=== PATIENT | female | born 1965 | race Caucasian/White ===

== ENCOUNTER → 2016-07-16 | Outpatient (CLI) | payer OTHER ==
[~2016-07-16] MED LIST: ACETAMINOPHEN 325 MG TAB PO ONE; diphenhydrAMINE 25 MG CAP PO ONE
[2016-07-16 11:03] LABS: % IMMATURE GRANULOCYTES 0.8 % (0.0-1.1); ABSOLUTE IMMATURE GRANULOCYTES 0.01 10^3/uL (0-0.10); HEMATOCRIT 35.8 % (38.0-47.0); HEMOGLOBIN 11.9 g/dL (12.6-16.3); LIPEMIA HEMOLYSIS FLAG 80 (0-99); MEAN CELL HEMOGLOBIN 31.4 pg (27.9-34.1); MEAN CELL HEMOGLOBIN CONC. 33.2 g/dL (32.4-36.7); MEAN CELL VOLUME 94.5 fL (81.5-99.8); PLATELET CLUMPS FLAG 0 (0-99); PLATELET COUNT 9 10^3/uL (150-400); RED BLOOD CELL COUNT 3.79 10^6/uL (4.18-5.33); RED CELL DISTRIBUTION WIDTH 11.7 % (11.5-15.2)
[2016-07-16 11:41] LABS: ALANINE AMINOTRANSFERASE 140 IU/L (9-52); ALBUMIN 4.1 g/dL (3.5-5.0); ALKALINE PHOSPHATASE 108 IU/L (38-126); ANION GAP 12 mEq/L (8-16); ASPARTATE AMINOTRANSFERASE 59 IU/L (14-46); BILIRUBIN,TOTAL 0.7 mg/dL (0.1-1.4); CALCIUM 8.9 mg/dL (8.5-10.4); CARBON DIOXIDE 26 mEq/l (22-31); CHLORIDE 105 mEq/L (97-110); CREATININE 0.7 mg/dL (0.6-1.0); GLOMERULAR FILTRATION RATE > 60; GLUCOSE 90 mg/dL (70-100); POTASSIUM 3.9 mEq/L (3.5-5.2); SODIUM 143 mEq/L (134-144); TOTAL PROTEIN 6.9 g/dL (6.3-8.2)
== END ==
LOC: RMCCLAB 05:32 → EDSTATUS 14:03 → FOBOP 14:04
PROVIDERS: ATTEND Internal Medicine Hematology & Oncology
PROC: 30233R1 Transfusion of Nonautologous Platelets into Peripheral Vein, Percutaneous Approach (ICD-10-PCS; principal; 2016-07-16)
DX: C50.412 Malignant neoplasm of upper-outer quadrant of left female breast (principal)
CPT/HCPCS: 36430; P9035

== ENCOUNTER → 2016-09-09 | Outpatient (CLI) | payer OTHER | LOC: FIMAGING 15:49 | PROVIDERS: ATTEND Nurse Practitioner | DX: M79.602 Pain in left arm (principal); M79.89 Other specified soft tissue disorders; Z90.13 Acquired absence of bilateral breasts and nipples ==

== ENCOUNTER → 2016-09-14 | Outpatient (CLI) | payer OTHER | LOC: FIMAGING 12:35 | PROVIDERS: ATTEND Internal Medicine Hematology & Oncology | DX: S46.012A Strain of muscle(s) and tendon(s) of the rotator cuff of left shoulder, initial encounter (principal); Z90.12 Acquired absence of left breast and nipple ==

== ENCOUNTER → 2016-09-18 | Outpatient (CLI) | payer OTHER ==
[~2016-09-18] MED LIST changes: +HYDROmorphONE/DILAUDID 2 MG/ML INJ IVP ONE; +LORazepam 2 MG/ML INJ IVP ONE
[2016-09-18 14:26] LABS: % IMMATURE GRANULOCYTES 0.5 % (0.0-1.1); ABSOLUTE IMMATURE GRANULOCYTES 0.02 10^3/uL (0-0.10); HEMATOCRIT 20.4 % (38.0-47.0); HEMOGLOBIN 6.8 g/dL (12.6-16.3); LIPEMIA HEMOLYSIS FLAG 80 (0-99); MEAN CELL HEMOGLOBIN 34.3 pg (27.9-34.1); MEAN CELL HEMOGLOBIN CONC. 33.3 g/dL (32.4-36.7); PLATELET CLUMPS FLAG 10 (0-99); RED BLOOD CELL COUNT 1.98 10^6/uL (4.18-5.33); RED CELL DISTRIBUTION WIDTH 17.3 % (11.5-15.2)
[2016-09-18 14:37] LABS: ALANINE AMINOTRANSFERASE 213 IU/L (9-52); ALBUMIN 3.8 g/dL (3.5-5.0); ALKALINE PHOSPHATASE 161 IU/L (38-126); ANION GAP 11 mEq/L (8-16); ASPARTATE AMINOTRANSFERASE 92 IU/L (14-46); BILIRUBIN,TOTAL 0.7 mg/dL (0.1-1.4); CARBON DIOXIDE 30 mEq/l (22-31); CHLORIDE 98 mEq/L (97-110); CREATININE 0.5 mg/dL (0.6-1.0); GLOMERULAR FILTRATION RATE > 60; POTASSIUM 4.2 mEq/L (3.5-5.2); SODIUM 139 mEq/L (134-144); TOTAL PROTEIN 6.4 g/dL (6.3-8.2)
[2016-09-18 14:39] LABS: PLATELET COUNT 6 10^3/uL (150-400)
[2016-09-18 14:42] LABS: COLOR YELLOW
[2016-09-18 14:43] LABS: LEUKOCYTE ESTERASE,URINE NEGATIVE (NEGATIVE); NITRITE,URINE NEGATIVE (NEGATIVE)
[2016-09-18 15:14] LABS: GLUCOSE 105 mg/dL (70-100)
== END ==
LOC: RMCCLAB 13:22 → EDSTATUS 17:11 → F1NOP 17:12
PROVIDERS: ATTEND Internal Medicine Hematology & Oncology
DX: C50.919 Malignant neoplasm of unspecified site of unspecified female breast (principal)
CPT/HCPCS: 36430; P9016; P9035; 86300-90; J1170; J2060

== ENCOUNTER 2016-09-20 15:25 | Outpatient (CLI) | payer OTHER ==
[2016-09-20 14:53] LABS: % IMMATURE GRANULOCYTES 0.3 % (0.0-1.1); ABSOLUTE IMMATURE GRANULOCYTES 0.01 10^3/uL (0-0.10); ABSOLUTE NRBC COUNT 0.04 10^3/uL (0-0.01); HEMATOCRIT 23.5 % (38.0-47.0); MEAN CELL HEMOGLOBIN 32.9 pg (27.9-34.1); MEAN CELL VOLUME 96.7 fL (81.5-99.8); RED BLOOD CELL COUNT 2.43 10^6/uL (4.18-5.33); RED CELL DISTRIBUTION WIDTH 18.2 % (11.5-15.2)
[2016-09-20 15:02] LABS: NRBC-AUTO% 1.3 % (0.0-0.2)
[2016-09-20] MEDS ORDERED: diphenhydrAMINE 25 MG CAP PO ONE (16:00)
[2016-09-20] MEDS ORDERED: ACETAMINOPHEN 325 MG TAB PO ONE (16:00)
== END 2016-09-20 20:56 | disposition home or self-care (01) ==
LOC: FOBOP 15:25 → EDSTATUS 15:25 → FOBOP 20:56
PROVIDERS: ATTEND Internal Medicine Hematology & Oncology
PROC: 30233N1 Transfusion of Nonautologous Red Blood Cells into Peripheral Vein, Percutaneous Approach (ICD-10-PCS; principal; 2016-09-20)
DX: C50.919 Malignant neoplasm of unspecified site of unspecified female breast (principal); Z88.5 Allergy status to narcotic agent
CPT/HCPCS: 36430; P9016

== ENCOUNTER 2016-09-23 14:55 | Inpatient (IN) | payer OTHER ==
[2016-09-23] MEDS ORDERED: MAGNESIUM HYDROXIDE 30 ML UDCUP PO PRN ×2 (17:09→17:15)
[2016-09-23] MEDS ORDERED: oxyCODONE IR 5 MG TAB PO PRN (17:13)
[2016-09-23] MEDS ORDERED: ACETAMINOPHEN 325 MG TAB PO PRN (17:13)
[2016-09-23] MEDS ORDERED: LACTULOSE 20 GM/30 ML UDCUP PO PRN (17:15)
[2016-09-23] MEDS ORDERED: POLYETHYLENE GLYCOL 3350 17 GM PKT PO PRN (17:15)
[2016-09-23] MEDS ORDERED: BISACODYL 10 MG SUPP PR PRN (17:15)
[2016-09-23] MEDS ORDERED: morphINE SR 15 MG TAB PO SCH (17:30)
[2016-09-23] MEDS: VANCOMYCIN 1.25 GM in D5W 250 ML IV SCH (18:08)
--- NOTE | 2016-09-23 18:11 | GHP ---
[f rep st] HISTORY AND PHYSICAL DATE OF ADMISSION: 09/23/2016 CHIEF COMPLAINT: Left-sided shoulder and flank swelling and fever. HISTORY OF PRESENT ILLNESS: This is a 50-year-old female with a history of recurrent triple negativ e breast cancer, on adjuvant chemotherapy with Taxol, who was directly admitted to [address] [place] [address] from [facility] after she was found to be neutropenic and reported fevers over the past few weeks. Approximately 3-1/2 weeks ago, she sustained a tear to her teres major muscle on the left. She is u nsure how this injury occurred but thinks that she had been pulled by one of her animals. Since the n, she has had worsening pain and swelling over her left shoulder, left breast and flank. She has h ad increasing pain to the point where she has been basically bedbound for the past 2 weeks. She has been having fevers of up to 100.4 on and off for the past few weeks as well. She denies any recent antibiotic use. She has had some shortness of breath that she attributes to the pain, as we ll as some nausea and constipation, possibly from her pain medications. She has also been having problems with anemia and received a unit of packed red blood cells and plat elets last Friday, as well as another unit on this past Friday. PAST MEDICAL HISTORY: Recurrent triple negative breast cancer. PAST SURGICAL HISTORY: 1. Hysterectomy. 2. Right lumpectomy at which time she was diagnosed with breast cancer at age 27. 3. Lymph node resection in the s on the right. 4. Left breast lumpectomy, which found triple negative breast cancer with subsequent sentinel node biopsy and lymph node dissection. 5. Bilateral mastectomy with reconstruction done by Dr. Denise in November of 2015. MEDICATIONS: Home medications were reviewed. Refer to [facility] for details. ALLERGIES: Celexa, codeine, adhesive tape, and ChloraPrep. SOCIAL HISTORY: She lives in [place] with her . She denies any alcohol, tobacco, or illicit d rug use. FAMILY HISTORY: Reviewed and noncontributory. REVIEW OF SYSTEMS: Comprehensive 10-point review of systems was done and is negative, except for as mentioned in the HPI. PHYSICAL EXAMINATION: GENERAL: No acute distress. HEAD: Normocephalic, atraumatic. EYES: PERRL A. Sclerae anicteric. MOUTH: Moist mucous membranes. NECK: Supple. No lymphadenopathy. CARDIO VASCULAR: S1-S2. No murmurs, rubs, clicks, gallops, or JVD. No lower extremity edema. PULMONARY: Lungs are clear. No wheezes, rales, or rhonchi. ABDOMEN: Soft, nontender, nondistended. No gua rding or rebound tenderness. Normoactive bowel sounds. CHEST: There is fullness over the left manjit ast that is not warm to touch. There is no erythema. There is also fullness over the left trapeziu s and left flank with no ecchymosis or erythema. The superior aspect of her left breast is very ten mellissa to palpation. EXTREMITIES: No clubbing or cyanosis. NEURO: Cranial nerves 2-12 grossly intac t. No focal motor or sensory deficits. SKIN: Clear. See above. VITAL SIGNS: Have not yet been recorded during the time of my exam. DIAGNOSTICS: Done at [facility] earlier today. WBC is 1.47, hemoglobin 9.3, hem atocrit 28.1, platelets 83. Sodium 138, potassium 4.4, chloride 101, CO2 26, BUN 12, creatinine 0.6 , glucose 103. AST 57, ALT 114. Alkaline phosphatase 163. UA done on 09/18/2016 was unremarkable. Upper extremity MRI done 09/14/2016 revealed an acute partial tear of the teres major with intramusc ular and adjacent hemorrhage. There is fibrosis and calcification within the belly of the subscapul angelito. Refer to report for full details. ASSESSMENT AND PLAN: This is a 50-year-old female with a history of recurrent breast cancer on adju vant chemotherapy presenting with: 1. Neutropenic fever, concerning for possible implant infection versus hematoma and bleeding from h er recent teres major tear. Plan: I discussed the case with Dr. Russo, who is her treating oncolog ist, who told me that she had a CT scan done recently at [facility] that was conc erning for possible new metastatic disease. 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 Dr. Russo has discussed the case with Dr. Leonardo, as well as with Dr. Denise. For now, she will be started on empiric antibiotics with vancomycin and cefepime. Bl ood cultures have been ordered. 2. Anemia and thrombocytopenia. Plan: The patient will be monitored for bleeding and will transfu se per hospital protocol. We will also send coags, and if coag studies are abnormal, will consider further workup for DIC. 3. Transaminitis, which appears to be chronic. Plan: This will continue to trend. 4. The patient is at high risk for VTE; however, I am reluctant to start chemical DVT prophylaxis g iven the possibility of recent hemorrhage. For now, SCDs will be ordered but consideration for star ting low molecular weight heparin should be entertained. /[id number]/MODL
[2016-09-23 18:30] LABS: APTT 32.1 SEC (23.0-38.0); INR 1.11 (0.83-1.16); PROTIME(PATIENT) 14.2 SEC (12.0-15.0)
[2016-09-23] MEDS ORDERED: diphenhydrAMINE 25 MG CAP PO ONE (19:16)
[2016-09-23] MEDS: diphenhydrAMINE 25 MG CAP PO PRN (19:25)
[2016-09-23 20:08] LABS: COLOR PALE YELLOW; LEUKOCYTE ESTERASE,URINE NEGATIVE (NEGATIVE); NITRITE,URINE NEGATIVE (NEGATIVE)
[2016-09-23] MEDS ORDERED: HYDROmorphONE/DILAUDID 4 MG TAB PO PRN ×2 (20:25→21:22)
[2016-09-23 20:34] LABS: WBC,URINE NONE SEEN /hpf (0-3)
[2016-09-23] MEDS: CEFEPIME HCL 2 GM in D5W 100 ML IV SCH (21:43)
[2016-09-23] MEDS: morphINE SR 15 MG TAB PO SCH (21:43)
[2016-09-23] MEDS: LORazepam 0.5 MG TAB PO PRN (21:43)
[2016-09-23] MEDS: SENNOSIDES/DOCUSATE SODIUM TAB PO SCH (21:43)
[2016-09-23] MEDS: HYDROCODONE/APAP 5/325 TAB PO PRN (23:25)
[2016-09-24] MEDS: LORazepam 0.5 MG TAB PO PRN ×2 (01:32→21:51)
[2016-09-24] MEDS: HYDROCODONE/APAP 5/325 TAB PO PRN ×7 (02:46→23:48)
[2016-09-24] MEDS: CEFEPIME HCL 2 GM in D5W 100 ML IV SCH ×3 (05:23→21:41)
[2016-09-24] MEDS: morphINE SR 15 MG TAB PO SCH ×3 (05:23→21:41)
[2016-09-24] MEDS: diphenhydrAMINE 25 MG CAP PO PRN (05:27)
[2016-09-24 05:43] LABS: ADD DIFF? YES; ADD MORPH? NO; ADD SCAN? NO; ATYPICAL LYMPHOCYTE FLAG 0 (0-99); FRAGMENT RBC FLAG 20 (0-99); HEMATOCRIT 26.2 % (38.0-47.0); HEMOGLOBIN 8.8 g/dL (12.6-16.3); LEFT SHIFT FLG 10 (0-99); LIPEMIA HEMOLYSIS FLAG 80 (0-99); MEAN CELL HEMOGLOBIN 32.1 pg (27.9-34.1); MEAN CELL HEMOGLOBIN CONCENTR. 33.6 g/dL (32.4-36.7); MEAN CELL VOLUME 95.6 fL (81.5-99.8); MEAN PLATELET VOLUME 10.9 fL (8.7-11.7); PLATELET CLUMPS FLAG 20 (0-99); PLATELET COUNT 100 10^3/uL (150-400); RED BLOOD CELL COUNT 2.74 10^6/uL (4.18-5.33); RED CELL DISTRIBUTION WIDTH 19.7 % (11.5-15.2)
[2016-09-24] MEDS: VANCOMYCIN 1.25 GM in D5W 250 ML IV SCH ×2 (06:03→18:16)
[2016-09-24 06:18] LABS: ALANINE AMINOTRANSFERASE 99 IU/L (9-52); ALBUMIN 3.5 g/dL (3.5-5.0); ALKALINE PHOSPHATASE 162 IU/L (38-126); ANION GAP 11 mEq/L (8-16); ASPARTATE AMINOTRANSFERASE 50 IU/L (14-46); BILIRUBIN,TOTAL 0.7 mg/dL (0.1-1.4); CALCIUM 8.7 mg/dL (8.5-10.4); CARBON DIOXIDE 26 mEq/l (22-31); CHLORIDE 103 mEq/L (97-110); CREATININE 0.5 mg/dL (0.6-1.0); GLOMERULAR FILTRATION RATE > 60; GLUCOSE 101 mg/dL (70-100); PLATELET ESTIMATE DECREASED (ADEQ); POLYCHROMASIA 2+; POTASSIUM 4.2 mEq/L (3.5-5.2); SODIUM 140 mEq/L (134-144); TOTAL PROTEIN 6.2 g/dL (6.3-8.2)
[2016-09-24 06:19] LABS: MACROCYTES 1+
[2016-09-24 06:21] LABS: HYPOCHROMIA 1+
[2016-09-24] MEDS: ESCITALOPRAM OXALATE 10 MG TAB PO SCH (08:57)
[2016-09-24] MEDS: SENNOSIDES/DOCUSATE SODIUM TAB PO SCH ×2 (09:00→19:52)
--- NOTE | 2016-09-24 11:51 | SOAPPROG ---
SOAP Progress Note Assessment/Plan: Assessment: 1.) Fluid accumulation L anterior chest wall with neutropenic fever- possible infected seroma or hematoma now treated with empiric Vancomycin 2.) Left posterior shoulder Anteres Majory muscle tear -probably related to physical strain with outdoor chores, recently 3.) Left breast Carcinoma, initial diagnosis 2014, Triple neg. characteristics , S/P Bilateral mastectomy 08/15 with bilateral implants. S/P Adjuvant Tx for Stage IA, [id number] disease with TC x 4 ( 05/14-07/15 - neoadjuvant Tx). Recurrence, now being treated with weekly Taxol, now causing rather severe pancytopenia, with platelet count down to 6,000. S/P recent blood product support, last week. Marked Neutropenia in the face of infection will resolve with G-CSF which will be ordered to start today. Plan: 1.) Empiric Vancomycin 2.) Blood product support if needed 3.) G-CSF to hasten WBC recovery 4.) Consult Plastic Surgery to consider if percutaneous CT guided fluid cx needs to be obtained. May need to re-image with CT as to fluid resolution. 5.) Delay in further weekly paclitaxel in the face of myelosuppression and possible chest wall infection. 6.) Will follow labs/VS/sx. D/W patient and her at the bedside. 09/24/16 11:51 Subjective: Left anterior chest wall feels somewhat better this AM, still with considerable feeling of fullness, which has shifted lateral and caudal. Mild fever/chills overnight Objective: in NAD, at bedside, VSS, afebrile HEENT-partial alopecia, no oral lesions, anicteric Neck- supple Chest- clear to auscultation, Left anterior chest wall above and below implant shows edema, with tenderness CVS- RSR, no extra HS ABD- soft, NT, no mass or HSM EXT- minimal LUE edema, no LE edema Labs as noted here: ANC 0.76, PLT 100, Chem panel okay. Vital Signs Temp Pulse Resp BP Pulse Ox 36.9 C 72 18 116/70 93 09/24/16 07:51 09/24/16 07:51 09/24/16 07:51 09/24/16 07:51 09/24/16 07:51 Laboratory Results 09/24/16 05:20 09/24/16 05:20 09/23/16 09/24/16 09/25/16 05:59 05:59 05:59 Intake Total 1350 Output Total 1600 1000 Balance -250 -1000 PT 14.2 SEC (12.0-15.0) 09/23/16 18:15 INR 1.11 (0.83-1.16) 09/23/16 18:15 ICD10 Worksheet Patient Problems: Problems Problem Status Onset Breast cancer greater than 0.1 cm and less than or equal to 0.5 cm in greatest dimension Acute
[2016-09-24] MEDS: FILGRASTIM-SNDZ 300 MCG/0.5 ML SYR SC SCH (15:32)
[2016-09-24] MEDS ORDERED: HYDROmorphONE/DILAUDID 1 MG/ML SYR IVP ONE (15:45)
--- NOTE | 2016-09-24 15:51 | HOSPPROG ---
Hospitalist Progress Note Assessment/Plan: 50 yo F w metastatic breast cancer here w febrile neutropenia, breast cellulitis breast cellulitis: on vanc cefepime no clear fluid collection although thinness of skin overlying implant concernig for hardware infection plastics unavailable for consult this week (?) check u/s for fluid collection neutropenia: gcsf given attributable to chemo breast CA: was due for chemo today proph: agree w scd's for now given risk of bleeding from teresmajor tear code: full Subjective: case d/w dr garza. CT images reviewed/interpreted w radiology Objective: Vital Signs Temp Pulse Resp BP Pulse Ox 36.9 C 68 12 106/60 95 09/24/16 07:51 09/24/16 12:00 09/24/16 12:00 09/24/16 12:00 09/24/16 12:00 Laboratory Results 09/24/16 05:20 09/24/16 05:20 09/23/16 09/24/16 09/25/16 05:59 05:59 05:59 Intake Total 1350 Output Total 1600 2350 Balance -250 -2350 PT 14.2 SEC (12.0-15.0) 09/23/16 18:15 INR 1.11 (0.83-1.16) 09/23/16 18:15 - Physical Exam Constitutional: no apparent distress, appears nourished Eyes: PERRL, anicteric sclera Ears, Nose, Mouth, Throat: moist mucous membranes, hearing normal Cardiovascular: regular rate and rhythym, no murmur, rub, or gallop Respiratory: no respiratory distress, no rales or rhonchi Gastrointestinal: normoactive bowel sounds, soft, non-tender abdomen Genitourinary: No french in urethra Skin: warm, normal color Musculoskeletal: other (L breast w overlying cellulitis, no fluctuance, no obvious fluid collection) Neurologic: AAOx3, sensation intact bilaterally Psychiatric: interacting appropriately, not anxious Lymph, Heme, Immunologic: no cervical LAD ICD10 Worksheet Patient Problems: Problems Problem Status Onset Breast cancer greater than 0.1 cm and less than or equal to 0.5 cm in greatest dimension Acute
[2016-09-25] MEDS: HYDROCODONE/APAP 5/325 TAB PO PRN ×2 (03:48→08:52)
[2016-09-25] MEDS: morphINE SR 15 MG TAB PO SCH ×3 (05:15→22:05)
[2016-09-25 05:35] LABS: ADD MORPH? NO; ADD SCAN? YES; ATYPICAL LYMPHOCYTE FLAG 0 (0-99); FRAGMENT RBC FLAG 20 (0-99); HEMATOCRIT 25.3 % (38.0-47.0); HEMOGLOBIN 8.2 g/dL (12.6-16.3); LIPEMIA HEMOLYSIS FLAG 80 (0-99); MEAN CELL HEMOGLOBIN CONCENTR. 32.4 g/dL (32.4-36.7); MEAN CELL VOLUME 98.8 fL (81.5-99.8); MEAN PLATELET VOLUME 10.2 fL (8.7-11.7); PLATELET CLUMPS FLAG 0 (0-99); PLATELET COUNT 97 10^3/uL (150-400); RED BLOOD CELL COUNT 2.56 10^6/uL (4.18-5.33); RED CELL DISTRIBUTION WIDTH 19.6 % (11.5-15.2)
[2016-09-25 05:43] LABS: ALANINE AMINOTRANSFERASE 107 IU/L (9-52); ALKALINE PHOSPHATASE 149 IU/L (38-126); ANION GAP 8 mEq/L (8-16); ASPARTATE AMINOTRANSFERASE 63 IU/L (14-46); BILIRUBIN,TOTAL 0.7 mg/dL (0.1-1.4); CALCIUM 8.6 mg/dL (8.5-10.4); CARBON DIOXIDE 26 mEq/l (22-31); CHLORIDE 103 mEq/L (97-110); CREATININE 0.5 mg/dL (0.6-1.0); GLOMERULAR FILTRATION RATE > 60; GLUCOSE 99 mg/dL (70-100); POTASSIUM 4.2 mEq/L (3.5-5.2); SODIUM 137 mEq/L (134-144); TOTAL PROTEIN 5.8 g/dL (6.3-8.2)
[2016-09-25 05:45] LABS: LEFT SHIFT FLG 150 (0-99)
[2016-09-25 06:04] LABS: ADD DIFF? YES; SCAN POSITIVE
[2016-09-25 06:09] LABS: MACROCYTES 1+; PLATELET ESTIMATE DECREASED (ADEQ)
[2016-09-25 06:10] LABS: HYPOCHROMIA 1+; POLYCHROMASIA 1+
[2016-09-25] MEDS: CEFEPIME HCL 2 GM in D5W 100 ML IV SCH ×3 (06:17→22:05)
[2016-09-25] MEDS: VANCOMYCIN 1.25 GM in D5W 250 ML IV SCH ×2 (06:20→18:29)
[2016-09-25] MEDS: ONDANSETRON 4 MG/2 ML VIAL IVP PRN ×2 (07:32→20:03)
--- NOTE | 2016-09-25 08:26 | HOSPPROG ---
Hospitalist Progress Note Assessment/Plan: #Neutropenic fever: concern for infected seroma/hematoma at breast implant vs. teres muscle tear -empiric Vanc/Cefepime. Cultures NGTD #Left breast carcinoma: triple-negative. S/p bilateral mastectomy 08/15 with implants. On Taxol #Pancytopenia: due to Taxol. G-CSF #Constipation: aggressive bowel regimen, more ambulation #Acute on chronic pain: due to muscle tear vs. seroma. Cont MS Contin. Bowel regimen #Diet: regular #DVT ppx: ambulating #Disp: cont IV abx, aggressive bowel regimen Subjective: "rectal spasm" after suppository and straining for BM this morning Objective: Vital Signs Temp Pulse Resp BP Pulse Ox 36.7 C 77 16 110/70 95 09/25/16 04:00 09/25/16 07:37 09/25/16 07:37 09/25/16 07:37 09/25/16 07:37 Laboratory Results 09/25/16 05:15 09/25/16 05:15 09/24/16 09/25/16 09/26/16 05:59 05:59 05:59 Intake Total 1350 2900 Output Total 1600 4450 Balance -250 -1550 PT 14.2 SEC (12.0-15.0) 09/23/16 18:15 INR 1.11 (0.83-1.16) 09/23/16 18:15 - Physical Exam Constitutional: other (tired-appearing) Eyes: PERRL Ears, Nose, Mouth, Throat: dry mucous membranes Cardiovascular: regular rate and rhythym Respiratory: no respiratory distress Gastrointestinal: normoactive bowel sounds, soft, non-tender abdomen, no palpable masses Skin: warm Musculoskeletal: other (mild swelling over left shoulder, upper chest. Port in place without e/o infection) Neurologic: AAOx3 Psychiatric: interacting appropriately ICD10 Worksheet Patient Problems: Problems Problem Status Onset Breast cancer greater than 0.1 cm and less than or equal to 0.5 cm in greatest dimension Acute
[2016-09-25] MEDS: SENNOSIDES/DOCUSATE SODIUM TAB PO SCH ×2 (08:29→19:59)
[2016-09-25] MEDS: ESCITALOPRAM OXALATE 10 MG TAB PO SCH (08:52)
[2016-09-25] MEDS ORDERED: MAGNESIUM CITRATE 300 ML BOTTLE PO PRN (10:18)
--- NOTE | 2016-09-25 11:36 | SOAPPROG ---
SOAP Progress Note Assessment/Plan: Assessment: 1.) Fluid accumulation L anterior chest wall appears to be cyst, and less likely infected, but will continue Vanco/Cefipime for now. Appreciate Surgical input. Plastic Surgery service not available this week. 2.) Left posterior shoulder Anteres Major muscle tear -probably related to physical strain with outdoor chores, recently 3.) Left breast Carcinoma, initial diagnosis 2014, Triple neg. characteristics , S/P Bilateral mastectomy 08/15 with bilateral implants. S/P Adjuvant Tx for Stage IA, [id number] disease with TC x 4 ( 05/14-07/15 - neoadjuvant Tx). Recurrence, now being treated with weekly Taxol, now causing rather severe pancytopenia, with platelet count down to 6,000. S/P recent blood product support, last week. Marked Neutropenia in the face of infection will resolve with G-CSF which will be continued for one additional dose today, . 4.) Narcotic related constipation- to add laxatives, and add ibuprofen. Plan: 1.) Empiric Vancomycin/Cefipime 2.) Blood product support if needed 3.) G-CSF to hasten WBC recovery for a second dose on 09/25/16, and recheck WBC tomorrow. 4.) Consult Surgery to consider if lung biopsy or T-centesis would offer value. 5.) Delay in further weekly paclitaxel in the face of myelosuppression and possible chest wall infection. 6.) Will follow labs/VS/sx. D/W patient and her sister at the bedside. 09/24/16 11:51 09/25/16 11:36 Subjective: Having some constipation and having same amount of L anterior chest wall discomfort. Ate solid dinner last night but not interested in food with constipation- likely related to narcotics this AM. Objective: As noted here, VSS, afebrile Alert and conversant, animated, looks a bit uncomfortable, in NAD, sister and hospital staff @ bedside HEENT- anicteric, partial alopecia, no oral lesions. Chest- clear CVS- RSR, no extra HS, Left anterior chest wall shows firmness above L chest wall implant, no warmth or fluctuance. Implant appears intact to exam. Left posterior chest wall shows a large area of tenderness above L scapula ABD- soft, NT no mass, ascites, or HSM EXT- no edema. Imaging: Left chest wall U/S shows small cyst like 8 x 8 x 5 mm structure in upper chest. Vital Signs Temp Pulse Resp BP Pulse Ox 36.7 C 77 16 110/70 95 09/25/16 04:00 09/25/16 07:37 09/25/16 07:37 09/25/16 07:37 09/25/16 07:37 Laboratory Results 09/25/16 05:15 09/25/16 05:15 09/24/16 09/25/16 09/26/16 05:59 05:59 05:59 Intake Total 1350 2900 Output Total 1600 4450 Balance -250 -1550 PT 14.2 SEC (12.0-15.0) 09/23/16 18:15 INR 1.11 (0.83-1.16) 09/23/16 18:15 ICD10 Worksheet Patient Problems: Problems Problem Status Onset Breast cancer greater than 0.1 cm and less than or equal to 0.5 cm in greatest dimension Acute
[2016-09-25] MEDS: IBUPROFEN 200 MG TAB PO PRN ×3 (12:02→23:56)
[2016-09-25] MEDS: LORazepam 0.5 MG TAB PO PRN ×2 (12:19→23:58)
[2016-09-25] MEDS: FILGRASTIM-SNDZ 300 MCG/0.5 ML SYR SC SCH (15:01)
[2016-09-26] MEDS: CEFEPIME HCL 2 GM in D5W 100 ML IV SCH (05:43)
[2016-09-26] MEDS: morphINE SR 15 MG TAB PO SCH (05:43)
[2016-09-26 06:01] VITALS: TEMP 98.1
[2016-09-26 06:05] LABS: ABSOLUTE NRBC COUNT 0.03 10^3/uL (0-0.01); ADD DIFF? YES; ATYPICAL LYMPHOCYTE FLAG 0 (0-99); HEMATOCRIT 25.9 % (38.0-47.0); HEMOGLOBIN 8.2 g/dL (12.6-16.3); LIPEMIA HEMOLYSIS FLAG 80 (0-99); MEAN CELL HEMOGLOBIN 31.4 pg (27.9-34.1); MEAN CELL HEMOGLOBIN CONCENTR. 31.7 g/dL (32.4-36.7); MEAN CELL VOLUME 99.2 fL (81.5-99.8); MEAN PLATELET VOLUME 11.4 fL (8.7-11.7); NRBC-AUTO% 0.4 % (0.0-0.2); PLATELET CLUMPS FLAG 0 (0-99); PLATELET COUNT 124 10^3/uL (150-400); RED BLOOD CELL COUNT 2.61 10^6/uL (4.18-5.33); RED CELL DISTRIBUTION WIDTH 19.9 % (11.5-15.2)
[2016-09-26 06:13] LABS: ALANINE AMINOTRANSFERASE 96 IU/L (9-52); ALBUMIN 3.1 g/dL (3.5-5.0); ALKALINE PHOSPHATASE 152 IU/L (38-126); ANION GAP 6 mEq/L (8-16); ASPARTATE AMINOTRANSFERASE 50 IU/L (14-46); BILIRUBIN,TOTAL 0.6 mg/dL (0.1-1.4); CALCIUM 8.8 mg/dL (8.5-10.4); CARBON DIOXIDE 29 mEq/l (22-31); CHLORIDE 104 mEq/L (97-110); CREATININE 0.6 mg/dL (0.6-1.0); GLOMERULAR FILTRATION RATE > 60; GLUCOSE 85 mg/dL (70-100); POTASSIUM 4.3 mEq/L (3.5-5.2); SODIUM 139 mEq/L (134-144); TOTAL PROTEIN 5.6 g/dL (6.3-8.2)
[2016-09-26 06:16] LABS: ADD MORPH? NO; ADD SCAN? NO; FRAGMENT RBC FLAG 100 (0-99); LEFT SHIFT FLG 260 (0-99)
[2016-09-26] MEDS: IBUPROFEN 200 MG TAB PO PRN (06:38)
[2016-09-26] MEDS: VANCOMYCIN 1.25 GM in D5W 250 ML IV SCH (06:38)
[2016-09-26 06:44] LABS: POLYCHROMASIA 2+
[2016-09-26 06:45] LABS: HYPOCHROMIA 1+; MACROCYTES 1+; PLATELET ESTIMATE ADEQUATE (ADEQ)
--- NOTE | 2016-09-26 07:53 | SOAPPROG ---
Downtime Inpatient Late Entry SOAP Note: I met yesterday afternoon with Mandy and her sister and to discuss the findings on her CT scan from Friday. The CT was reviewed and compared to prior CT from March 2016. She has bilateral pulmonary nodules and a left pleural effusion c/w metastatic disease. 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 Mandy and Albaro asked about travelling out of state for second opinions and are interested in the cancer program at [facility]. She has been seen at [facility] in the past as well as [facility] by Dr. Russo. I discussed her case with Dr. Russo and he plans on meeting with her and her family in the upcoming week. An outpatient PET-CT is recommended. I spent over an hour at the bedside discussing the findings and answering their questions. When she is recovered from her neutropenic fever she can be discharged home to pursue outpatient care. Ander Leonardo MD, FACS
[2016-09-26 08:15] VITALS: BP 96/54; PULSE 71; RESP 16; O2SAT 98
[2016-09-26] MEDS: ESCITALOPRAM OXALATE 10 MG TAB PO SCH (08:57)
[2016-09-26] MEDS: SENNOSIDES/DOCUSATE SODIUM TAB PO SCH (08:58)
--- NOTE | 2016-09-26 11:21 | HOSPPROG ---
Hospitalist Progress Note Assessment/Plan: #Neutropenic fever: concern for infected seroma/hematoma at breast implant vs. teres muscle tear -empiric Vanc/Cefepime. Cultures NGTD. Change to PO Doxy for total 7 days. #Metastatic Left breast carcinoma: new pulm nodules/effusion. triple-negative. S /p bilateral mastectomy 08/[address] with implants[address]ol[address] Leonardo counseled patient on options such as bx or pleurodesis. She would like to FU with Dr. Russo #Pancytopenia: improved with G-CSF #Constipation: aggressive bowel regimen, more ambulation #Acute on chronic pain: due to muscle tear vs. seroma. Cont MS Contin. Bowel regimen. Significant improvement with Advil #Diet: regular #DVT ppx: ambulating #Disp: DC today Objective: Vital Signs Temp Pulse Resp BP Pulse Ox 36.7 C 71 16 96/54 L 98 09/26/16 08:13 09/26/16 08:13 09/26/16 08:13 09/26/16 08:13 09/26/16 08:13 Microbiology 09/23/16 19:40 Urine Culture - Final Urine,Clean Catch Laboratory Results 09/26/16 05:45 09/26/16 05:45 09/25/16 09/26/16 09/27/16 05:59 05:59 05:59 Intake Total 2900 2300 Output Total 4450 1600 Balance -1550 700 PT 14.2 SEC (12.0-15.0) 09/23/16 18:15 INR 1.11 (0.83-1.16) 09/23/16 18:15 - Physical Exam Constitutional: no apparent distress, other (appears brighter today) Eyes: PERRL Ears, Nose, Mouth, Throat: moist mucous membranes Cardiovascular: regular rate and rhythym Respiratory: no respiratory distress Gastrointestinal: normoactive bowel sounds, other (left flank swelling resolved) Genitourinary: no bladder fullness Skin: warm Neurologic: AAOx3 Psychiatric: interacting appropriately ICD10 Worksheet Patient Problems: Problems Problem Status Onset Breast cancer greater than 0.1 cm and less than or equal to 0.5 cm in greatest dimension Acute
[2016-09-26] MEDS: ONDANSETRON 4 MG/2 ML VIAL IVP PRN (11:43)
--- NOTE | 2016-09-26 11:44 | SOAPPROG ---
SOAP Progress Note Assessment/Plan: Assessment: 1.) Fluid accumulation L anterior chest wall appears to be cyst, and less likely infected, but will discontinue Vanco/Cefipime as of now. Appreciate Surgical input. Plastic Surgery service not available this week. 2.) Left posterior shoulder Anteres Major muscle tear -probably related to physical strain with outdoor chores, recently 3.) Left breast Carcinoma, initial diagnosis 2014, Triple neg. characteristics , S/P Bilateral mastectomy 08/15 with bilateral implants. S/P Adjuvant Tx for Stage IA, [id number] disease with TC x 4 ( 05/14-07/15 - neoadjuvant Tx). Recurrence, now being treated with weekly Taxol, now causing rather severe pancytopenia, with platelet count down to 6,000. S/P recent blood product support, last week. Marked Neutropenia in the face of infection will resolve with G-CSF which will be continued for one additional dose today, . 4.) Narcotic related constipation- to add laxatives, and add ibuprofen. Plan: 1.) Discharge home with Doxycycline as discussed with . 2.) Continue Ibuprofen, prn 3.) Surgery input appreciated. 5.) Delay in further weekly paclitaxel in the face of myelosuppression and possible chest wall infection. 6.) Follow up as outpt. Pt. for discharge today, and she and her family agree with above. Rx given for lorazepam 0.5 mg # 50, without refill. 09/26/16 11:36 Subjective: Feeling better this AM after starting prn ibuprofen Worried about overall prognosis of her breast cancer. Family at the bedside. She feels well enough to go home. Objective: Pt. looks well, in NAD alert and animated. No facial assymetry. No extremity edema Labs as noted here: Hgb 8.2, WBC 7.54 Cx are negative so far. Vital Signs Temp Pulse Resp BP Pulse Ox 36.7 C 71 16 96/54 L 98 09/26/16 08:13 09/26/16 08:13 09/26/16 08:13 09/26/16 08:13 09/26/16 08:13 Microbiology 09/23/16 19:40 Urine Culture - Final Urine,Clean Catch Laboratory Results 09/26/16 05:45 09/26/16 05:45 03/09/26/16 09/27/16 05:59 05:59 05:59 Intake Total 2900 2300 Output Total 4450 1600 Balance -1550 700 PT 14.2 SEC (12.0-15.0) 09/23/16 18:15 INR 1.11 (0.83-1.16) 09/23/16 18:15 ICD10 Worksheet Patient Problems: Problems Problem Status Onset Breast cancer greater than 0.1 cm and less than or equal to 0.5 cm in greatest dimension Acute
--- NOTE | 2016-09-26 11:44 | GDS ---
[f rep st] DISCHARGE SUMMARY DISCHARGE DIAGNOSES: 1. Neutropenic fever. 2. Metastatic left breast carcinoma, triple negative. 3. Pancytopenia. 4. Constipation. 5. Acute on chronic pain. 6. Recent teres major muscle tear. HISTORY OF PRESENT ILLNESS: The patient is a very pleasant, 50-year-old female , with history of recurrent triple negative breast cancer, on Taxol, who was admitted from the Cancer Center after found to be neutropenic and reported fevers over the past 2 weeks. Approximately 3-1/2 weeks prior to admission, she sustained a tear to her teres major muscle on the left. She is unsure how this occurred, but may have been due to being pulled by one of her animals. Since that time, she has had worsening pain and sliding over to her left shoulder, breast and flank. The pain is so severe that she has been bedbound over the past 2 weeks. She reports fevers to 100.4 intermittently over this time period. No cough, sore throat, dysuria. HOSPITAL COURSE BY PROBLEM: 1. Neutropenic fever: Initial concern for infected seroma/hematoma at breast implant versus teres muscle tear. She was empirically treated with vancomycin and cefepime. UA, blood cultures and breast ultrasound all negative for infection. Has received 4 days of empiric antibiotics here. Will discontinue doxycycline for concern of possible MRSA. 2. Metastatic left breast carcinoma: Now evidence of metastatic disease with pulmonary nodules and effusion. She is currently on Taxol. Dr. Leonardo with Surgery, who knows the patient well, provided her possible options such as VATS or pleurodesis. At this point, patient would like to follow up with her primary oncologist, Dr. Russo, after discharge. 3. Pancytopenia due to Taxol: Counts improved with G-CSF. 4. Constipation secondary to chronic narcotics: She is now eating without nausea and having BMs. Recommend daily laxatives that she will buy over-the- counter. 5. [id number]-[id number] pain secondary to muscle tear: Pain significantly improved with Advil. Advised her not to use for extended period given GI and kidney side effects. She will continue her morphine sulfate Contin. Continue regular bowel regimen. DISPOSITION: Patient is stable for discharge. DISCHARGE MEDICATIONS: New medications: Doxycycline for 3 more days. FOLLOWUP: Follow up with Dr. Russo. Time spent on DC: 60min in which >35 min spent counseling patient on DC plan, meds and Follow up /[id number]/MODL MTDTino
[2016-09-26] MEDS: LORazepam 0.5 MG TAB PO PRN (13:42)
== END 2016-09-26 15:30 | disposition home or self-care (01) | DRG 809 ==
LOC: F1N 15:28 → OBSVTOIN 17:17 → F1N 17:23
PROVIDERS: ADMIT Family Medicine; ATTEND Internal Medicine
DX: D70.1 Agranulocytosis secondary to cancer chemotherapy (principal); C50.912 Malignant neoplasm of unspecified site of left female breast; J90 Pleural effusion, not elsewhere classified; C78.00 Secondary malignant neoplasm of unspecified lung; S46.812A Strain of other muscles, fascia and tendons at shoulder and upper arm level, left arm, initial encounter; D61.810 Antineoplastic chemotherapy induced pancytopenia; K59.03 Drug induced constipation; T40.605A Adverse effect of unspecified narcotics, initial encounter; X50.0XXA Overexertion from strenuous movement or load, initial encounter; Y93.K1 Activity, walking an animal; Z90.710 Acquired absence of both cervix and uterus
CPT/HCPCS: 97116-GP; 97161-GP; 97165-GO; J0692; J1200; J2405; J3370; Q5101-ZA

== ENCOUNTER 2016-11-03 19:22 | Observation (INO) | payer OTHER ==
--- NOTE | 2016-11-03 19:32 | CPEKG ---
Heart Rate: 69 RR Interval: 870 P-R Interval: 192 QRSD Interval: 84 QT Interval: 388 QTC Interval: 416 P [place]: 59 QRS [place]: 64 T Wave [place]: 68 EKG Severity - BORDERLINE ECG - EKG Impression: SINUS RHYTHM EKG Impression: BORDERLINE T ABNORMALITIES, ANT-LAT LEADS Electronically Signed By: Herberth Salcedo 03-Nov-2016 23:20:31
--- NOTE | 2016-11-03 19:50 | EDPHY ---
H & P Time Seen by Provider: 11/03/16 19:27 HPI/ROS: Chief complaint. Chest pain HPI. 50-year-old female with pain to the left chest radiating through to her back. She describes as tightness. She feels she can't take a deep breath. She felt gurgly. No fall or injury. No fever cough. No unusual leg pain or swelling. Symptoms began 2 hours ago. Patient has stage IV breast cancer with mets to the lung and to the abdomen. No history heart or lung problems. ROS Constitutional. no fever/chills, no weakness Eyes. no problems with vision ENT. no sore throat, no nasal drainage Cardiovascular. Left anterior chest pain radiating through to her Respiratory. Shortness of breath and can't take a deep breath. No cough Abdominal. no abdominal pain, no nausea/vomiting, no diarrhea . no problems urinating MS. no calf pain/swelling, no neck/back pain, no joint pain Skin. no rash Lymph. no swollen glands Neuro. no headache, no dizziness, no difficulty walking or with speech Past Medical/Surgical History: Past medical history seen for breast cancer, partial lumpectomy, hysterectomy, left shoulder injury Social History: , nonsmoker, no alcohol Smoking Status: Never smoked Physical Exam: General Appearance: Alert well-developed female moderate distress vital signs are stable Eyes: Pupils equal and round no pallor or injection. ENT, Mouth: Mucous membranes are moist. Respiratory: There are no retractions, lungs are clear to auscultation. Cardiovascular: Regular rate and rhythm. Gastrointestinal: Abdomen is soft and nontender, no masses, bowel sounds normal. Neurological: Awake and alert, sensory and motor exams grossly normal. Skin: Warm and dry, no rashes. Musculoskeletal: Neck is supple nontender. Extremities symmetrical, full range of motion. Psychiatric: Patient is oriented X 3, there is no agitation. Constitutional: Initial Vital Signs Temperature (C) 36.6 C 11/03/16 19:36 Heart Rate 70 11/03/16 19:36 Respiratory Rate 20 11/03/16 19:36 Blood Pressure 135/84 H 11/03/16 19:36 O2 Sat (%) 97 11/03/16 19:36 O2 Delivery Mode Room Air Allergies/Adverse Reactions: adhesive tape Allergy (Mild, Verified 08/18/15 09:58) citalopram hydrobromide [From Celexa] Allergy (Verified 07/24/15 11:44) codeine Allergy (Verified 07/24/15 11:44) CHLORA Allergy (Uncoded 07/24/15 11:45) Rash Home Medications: Medication Instructions Recorded Escitalopram Oxalate [Lexapro 10 5 mg PO DAILY 09/23/16 MG] HYDROcodone/APAP 10/325 [[place] 1 tab PO Q4 PRN 09/23/16 10/325 (*)] LORazepam [Ativan (*)] 0.5 mg PO DAILY PRN 09/23/16 Magnesium Hydroxide [Milk of 30 ml PO Q2D PRN 09/23/16 Magnesia] Ibuprofen [Motrin (*)] 400 mg PO Q6HRS PRN #0 tab 09/26/16 Polyethylene Glycol 3350 [Miralax 17 gm PO DAILY PRN #0 pkt 09/26/16 17 gm (*)] [place] 5/325 (*) 11/03/16 Medical Decision Making - Diagnostics EKG Interpretation: EKG interpreted by me shows normal sinus rhythm normal interval and axis. QRS is normal there is no significant ST elevation or depression. There is T-wave flattening in the anterior septal leads. No arrhythmia. The rate is 69 Imaging Results: Imaging Impressions Chest/Thorax CTA 11/03/16 19:58 Impression: 1. Interval increase in size of multiple bilateral pulmonary nodules as well as lymphadenopathy in this patient with history of metastatic breast cancer. 2. No evidence of pulmonary embolus using CT protocol. Findings discussed with Herberth Salcedo M.D. at 21:37 hour, 11/03/2016. Chest CT reviewed by me and discussed with Dr. Mckeon shows no evidence for pulmonary embolus. The metastatic disease has increased in size. No pneumonia Procedures: IV normal saline, monitor ED Course/Re-evaluation: Re-evaluation 9:50 p.m.--patient is stable. Her symptoms are improved after some Toradol. The patient, her , and I discussed imaging lab EKG results. We discussed treatment plan and recommendation for admission and observation. They expressed understanding and agreement Differential Diagnosis: I certainly thought the patient would have pulmonary embolus as a cause with sudden onset difficulty breathing. I have considered acute coronary syndrome as well. This could be musculoskeletal as the patient has had relief from Toradol - Data Points Laboratory Results: Laboratory Results 11/03/16 18:53 11/03/16 18:53 11/03/16 11/03/16 11/03/16 18:53 18:53 18:53 WBC 5.08 10^3/uL 10^3/uL (3.80-9.50) RBC 3.51 10^6/uL L 10^6/uL (4.18-5.33) Hgb 11.7 g/dL L g/dL (12.6-16.3) Hct 35.8 % L % (38.0-47.0) MCV 102.0 fL H fL (81.5-99.8) MCH 33.3 pg pg (27.9-34.1) MCHC 32.7 g/dL g/dL (32.4-36.7) RDW 15.8 % H % (11.5-15.2) Plt Count 120 10^3/uL L 10^3/uL (150-400) MPV 10.3 fL fL (8.7-11.7) Neut % (Auto) 68.8 % % (39.3-74.2) Lymph % (Auto) 20.3 % % (15.0-45.0) [place] % (Auto) 7.7 % % (4.5-13.0) Eos % (Auto) 2.4 % % (0.6-7.6) Baso % (Auto) 0.4 % % (0.3-1.7) Nucleat RBC Rel Count 0.0 % % (0.0-0.2) Absolute Neuts (auto) 3.50 10^3/uL 10^3/uL (1.70-6.50) Absolute Lymphs (auto) 1.03 10^3/uL 10^3/uL (1.00-3.00) Absolute Monos (auto) 0.39 10^3/uL 10^3/uL (0.30-0.80) Absolute Eos (auto) 0.12 10^3/uL 10^3/uL (0.03-0.40) Absolute Basos (auto) 0.02 10^3/uL 10^3/uL (0.02-0.10) Absolute Nucleated RBC 0.00 10^3/uL 10^3/uL (0-0.01) Immature Gran % 0.4 % % (0.0-1.1) Immature Gran # 0.02 10^3/uL 10^3/uL (0.00-0.10) PT 13.8 SEC SEC (12.0-15.0) INR 1.07 (0.83-1.16) APTT 36.5 SEC SEC (23.0-38.0) D-Dimer 0.44 ug/mLFEU ug/mLFEU (0.00-0.50) Sodium 142 mEq/L mEq/L (134-144) Potassium 3.6 mEq/L mEq/L (3.5-5.2) Chloride 108 mEq/L mEq/L (97-110) Carbon Dioxide 24 mEq/l mEq/l (22-31) Anion Gap 10 mEq/L mEq/L (8-16) BUN 18 mg/dL mg/dL (7-23) Creatinine 0.6 mg/dL mg/dL (0.6-1.0) Estimated GFR > 60 Glucose 108 mg/dL H mg/dL (70-100) Calcium 9.2 mg/dL mg/dL (8.5-10.4) Troponin I < 0.012 ng/mL ng/mL (0-0.034) Medications Given: Discontinued Medications Ketorolac Tromethamine (Toradol) 30 mg IVP EDNOW ONE Stop: 11/03/16 22:01 Last Admin: 11/03/16 21:38 Dose: 30 mg Morphine Sulfate (Morphine) 4 mg IVP EDNOW ONE Stop: 11/03/16 20:17 Last Admin: 11/03/16 20:16 Dose: 4 mg Departure - Departure Disposition: [facility] Inpatient Acute Clinical Impression: Chest pain Qualifiers: Chest pain type: unspecified Qualified Code(s): R07.9 - Chest pain, unspecified Condition: Fair
[2016-11-03] MEDS ORDERED: IOPAMIDOL (ISOVUE 370) 100 ML BTL IV ONE (20:01)
[2016-11-03 20:03] LABS: % IMMATURE GRANULYOCYTES 0.4 % (0.0-1.1); ABSOLUTE IMMATURE GRANULOCYTES 0.02 10^3/uL (0.00-0.10); ADD DIFF? NO; ADD MORPH? NO; ADD SCAN? NO; ATYPICAL LYMPHOCYTE FLAG 10 (0-99); FRAGMENT RBC FLAG 20 (0-99); HEMATOCRIT 35.8 % (38.0-47.0); HEMOGLOBIN 11.7 g/dL (12.6-16.3); LEFT SHIFT FLG 20 (0-99); LIPEMIA HEMOLYSIS FLAG 80 (0-99); MEAN CELL HEMOGLOBIN 33.3 pg (27.9-34.1); MEAN CELL HEMOGLOBIN CONCENTR. 32.7 g/dL (32.4-36.7); MEAN PLATELET VOLUME 10.3 fL (8.7-11.7); PLATELET CLUMPS FLAG 0 (0-99); PLATELET COUNT 120 10^3/uL (150-400); RED BLOOD CELL COUNT 3.51 10^6/uL (4.18-5.33); RED CELL DISTRIBUTION WIDTH 15.8 % (11.5-15.2)
[2016-11-03 20:08] LABS: INR 1.07 (0.83-1.16); PROTIME(PATIENT) 13.8 SEC (12.0-15.0)
[2016-11-03 20:09] LABS: APTT 36.5 SEC (23.0-38.0)
[2016-11-03 20:27] LABS: ANION GAP 10 mEq/L (8-16); CALCIUM 9.2 mg/dL (8.5-10.4); CARBON DIOXIDE 24 mEq/l (22-31); CHLORIDE 108 mEq/L (97-110); CREATININE 0.6 mg/dL (0.6-1.0); GLOMERULAR FILTRATION RATE > 60; GLUCOSE 108 mg/dL (70-100); POTASSIUM 3.6 mEq/L (3.5-5.2); SODIUM 142 mEq/L (134-144)
[2016-11-03 20:39] LABS: TROPONIN I < 0.012 ng/mL (0-0.034)
[2016-11-03] MEDS ORDERED: KETOROLAC 30 MG/1 ML SDV ONE (20:40)
[2016-11-03] MEDS ORDERED: KETOROLAC 30 MG/1 ML SDV IVP ONE (22:00)
[2016-11-03] MEDS ORDERED: NITROGLYCERIN 0.4 MG BTL SL PRN (23:04)
[2016-11-03] MEDS ORDERED: LORazepam 0.5 MG TAB PO PRN (23:06)
[2016-11-03] MEDS ORDERED: LORazepam 0.5 MG TAB PO ONE (23:06)
[2016-11-03] MEDS ORDERED: HYDROCODONE/APAP 10/325 TAB PO PRN (23:06)
[2016-11-03] MEDS ORDERED: MBX SOLN 30 ML BOTTLE PO PRN (23:07)
--- NOTE | 2016-11-03 23:15 | PDGENHP ---
History and Physical - Chief Complaint Acute chest pain - History of Present Illness PCP: Dr. Leslie Primary surgeon: Dr. Leonardo Primary oncologist: Dr. Russo HPI: 50-year-old female presenting with acute chest pain characterized as felt like pain located in her left chest radiating laterally with onset of symptoms approximately 5:00 p.m., described as sudden, duration approximately 2 hours and alleviated by Toradol received in the emergency department. Patient reports that the symptoms began while she was fishing and were not provoked by any identifiable precipitant. Prior to her onset of symptoms, the patient had been feeling somewhat fatigued and was very stressed. She began experiencing the aforementioned pain which was exacerbated by deep inspiration. It was so severe that she attempted to alleviated by sitting down but 1 was not alleviated , her brought her back to their vehicle and then brought her to the emergency department. She attempted to take [place] and Ativan but these did not provide any appreciable benefit. Her only other symptoms are intermittent left shoulder and left neck pain which are in a different location and are of different character than the after mentioned chief complaint. She also reports that approximately 2 days ago she felt like she was "fighting something off" consisting of myalgias and fatigue as well as sinus congestion. History Information - Allergies/Home Medication List Allergies/Adverse Reactions: adhesive tape Allergy (Mild, Verified 08/18/15 09:58) citalopram hydrobromide [From Celexa] Allergy (Verified 07/24/15 11:44) codeine Allergy (Verified 07/24/15 11:44) CHLORA Allergy (Uncoded 07/24/15 11:45) Rash Home Medications: Escitalopram Oxalate [Lexapro 10 MG] 5 mg PO DAILY 09/23/16 [Last Taken 10:00] HYDROcodone/APAP 10/325 [[place] 10/325 (*)] 1 tab PO Q4 PRN 09/23/16 [Last Taken 09/23/16 11:45] LORazepam [Ativan (*)] 0.5 mg PO DAILY PRN 09/23/16 [Last Taken 09/22/16 21:00] Magnesium Hydroxide [Milk of Magnesia] 30 ml PO Q2D PRN 09/23/16 [Last Taken ] [place] 5/325 (*) 11/03/16 [Last Taken Unknown] I have personally reviewed and updated: family history, medical history, social history, surgical history - Past Medical History Additional medical history: Triple negative, recurrent metastatic breast cancer with last PET scan in September demonstrating increased in pulmonary nodule and liver nodule size, most recent chemotherapy was gemcitabine and carboplatin, with Taxotere and Cytoxan received prior to that, has also received extensive radiation on the left side. Left-sided teres major shoulder injury. Malignant pleural effusion resolved with chemotherapy - Surgical History Additional surgical history: Bilateral mastectomy July of 2015, bilateral lumpectomies prior to that, hysterectomy - Family History Additional family history: with recent viral illness approximately 2 weeks ago, mother with cardiac stents in her 70s - Social History Smoking Status: Never smoked Alcohol Use: None Drug Use: None Additional social history: normally independent in her ADLs, has been fishing recently Review of Systems ROS: 10pt was reviewed & negative except for what was stated in HPI & below Cardiac: Reports: chest pain ( pleuritic) Neurological: Reports: other ( stress and anxiety) Physical Exam Temp Pulse Resp BP Pulse Ox 36.9 C 61 14 118/69 97 11/03/16 21:59 11/03/16 21:59 11/03/16 21:59 11/03/16 21:59 11/03/16 21:59 Constitutional: no apparent distress, appears nourished, chronically ill appearing, uncomfortable Eyes: PERRL, anicteric sclera, EOMI Ears, Nose, Mouth, Throat: moist mucous membranes, hearing normal, ears appear normal, no oral mucosal ulcers Cardiovascular: regular rate and rhythym, no murmur, rub, or gallop, No edema Respiratory: other ( shortened inspiratory phase secondary to chest discomfort on deep inspiration), No expiratory wheeze, No inspiratory crackles, No bronchial breath sounds, No respiratory distress Gastrointestinal: normoactive bowel sounds, soft, non-tender abdomen, no palpable masses Skin: other ( no erythema, no tenderness, no fluctuance over her left breast implant) Musculoskeletal: other ( limited range of motion in the left shoulder at approximately 110 degrees, no tenderness to palpation over the sub AC area, mild tenderness to palpation over the left ribs along the axillary line) Neurologic: AAOx3, No facial droop Psychiatric: interacting appropriately, not anxious, not encephalopathic, thought process linear Lab Data & Imaging Review 11/03/16 18:53 11/03/16 18:53 WBC 5.08 10^3/uL (3.80-9.50) 11/03/16 18:53 RBC 3.51 10^6/uL (4.18-5.33) L 11/03/16 18:53 Hgb 11.7 g/dL (12.6-16.3) L 11/03/16 18:53 Hct 35.8 % (38.0-47.0) L 11/03/16 18:53 MCV 102.0 fL (81.5-99.8) H 11/03/16 18:53 MCH 33.3 pg (27.9-34.1) 11/03/16 18:53 MCHC 32.7 g/dL (32.4-36.7) 11/03/16 18:53 RDW 15.8 % (11.5-15.2) H 11/03/16 18:53 Plt Count 120 10^3/uL (150-400) L 11/03/16 18:53 MPV 10.3 fL (8.7-11.7) 11/03/16 18:53 Neut % (Auto) 68.8 % (39.3-74.2) 11/03/16 18:53 Lymph % (Auto) 20.3 % (15.0-45.0) 11/03/16 18:53 [place] % (Auto) 7.7 % (4.5-13.0) 11/03/16 18:53 Eos % (Auto) 2.4 % (0.6-7.6) 11/03/16 18:53 Baso % (Auto) 0.4 % (0.3-1.7) 11/03/16 18:53 Nucleat RBC Rel Count 0.0 % (0.0-0.2) 11/03/16 18:53 Absolute Neuts (auto) 3.50 10^3/uL (1.70-6.50) 11/03/16 18:53 Absolute Lymphs (auto) 1.03 10^3/uL (1.00-3.00) 11/03/16 18:53 Absolute Monos (auto) 0.39 10^3/uL (0.30-0.80) 11/03/16 18:53 Absolute Eos (auto) 0.12 10^3/uL (0.03-0.40) 11/03/16 18:53 Absolute Basos (auto) 0.02 10^3/uL (0.02-0.10) 11/03/16 18:53 Absolute Nucleated RBC 0.00 10^3/uL (0-0.01) 11/03/16 18:53 Immature Gran % 0.4 % (0.0-1.1) 11/03/16 18:53 Immature Gran # 0.02 10^3/uL (0.00-0.10) 11/03/16 18:53 PT 13.8 SEC (12.0-15.0) 11/03/16 18:53 INR 1.07 (0.83-1.16) 11/03/16 18:53 APTT 36.5 SEC (23.0-38.0) 11/03/16 18:53 D-Dimer 0.44 ug/mLFEU (0.00-0.50) 11/03/16 18:53 Sodium 142 mEq/L (134-144) 11/03/16 18:53 Potassium 3.6 mEq/L (3.5-5.2) 11/03/16 18:53 Chloride 108 mEq/L (97-110) 11/03/16 18:53 Carbon Dioxide 24 mEq/l (22-31) 11/03/16 18:53 Anion Gap 10 mEq/L (8-16) 11/03/16 18:53 BUN 18 mg/dL (7-23) 11/03/16 18:53 Creatinine 0.6 mg/dL (0.6-1.0) 11/03/16 18:53 Estimated GFR > 60 11/03/16 18:53 Glucose 108 mg/dL (70-100) H 11/03/16 18:53 Calcium 9.2 mg/dL (8.5-10.4) 11/03/16 18:53 Troponin I < 0.012 ng/mL (0-0.034) 11/03/16 18:53 Visualized and Interpreted imaging results: Yes Interpretation: CT angiograms demonstrating no pulmonary embolism, increase pulmonary nodules, lymphadenopathy, no notable pleural effusion Visualized and Interpreted EKG results: Yes EKG Interpretation: Positive for: other ( normal sinus rhythm, mild T-wave flattening in leads V2 to V3) Assessment & Plan Assessment: 50-year-old female presents with acute chest pain in the setting of metastatic breast cancer Plan: 1. Chest pain. Acute, new problem this provider, further workup indicated. Potential etiologies include acute coronary syndrome versus pleuritis versus musculoskeletal cause versus gastroesophageal reflux disease. - given that the treatment for musculoskeletal cause and pleuritis would be regular use of nonsteroidal anti-inflammatory medications which would be contraindicated in the setting of acute coronary syndrome or obstructive coronary disease, it would be prudent to perform further cardiac risk stratification prior to making that recommendation - I have advised the patient that we will cycle cardiac enzymes overnight, and if negative, pursue exercise EKG stress test in a.m. - at the present time, the patient is amenable to performing the stress test, but she has indicated that she may decide to opt out in the morning if her cardiac enzymes are negative and she has not experienced recurrence of symptoms , this at the patient's discretion - hold on treating with nonsteroidal anti-inflammatory medications until risk stratification has been obtained as above - as needed overnight morphine and sublingual nitroglycerin, empiric aspirin - CT angiogram as rule out pulmonary embolism, rule out pleural effusion - empiric PPI, as needed Maalox - I suspect that the most likely cause of her pain is pleuritis in the setting of recent URI 2. Metastatic breast cancer. Triple negative, increasing size of pulmonary and hepatic nodules despite chemotherapy with Taxotere / Cytoxan, gemcitabine / carboplatin - patient reports that she will be following up for trial therapy - does not appear to have any radiation michaels 3. Teres major tear /strain. Reviewed previous, outside records including [address] Jaime siu 9, reporting that the patient was experiencing acute worsening of chronic pain secondary to left teres major injury, requiring as-needed [place] and Ativan - patient reports that this pain is different in location and character than her presenting chief complaint - she has requested a dose of Ativan and [place] this evening to help her sleep, will add here to this request - if above diagnostic workup does not demonstrate any clearly identifiable precipitant to her pain, it would be reasonable for her to follow up with her primary care provider after 1 week nonsteroidal anti-inflammatory medication trial, and assess whether further shoulder/muscular chest imaging is required to evaluate for any worsening muscle strain Diet. Regular, NPO in a.m. Prophylaxis. Moderate risk patient, SCDs overnight, Lovenox 40 if remains hospitalized beyond 24 hours Code. Full Disposition. Anticipated discharge is 11/04/2016, pending further workup and treatment as outlined above. I have discussed patient's presentation with Dr. Salcedo in the emergency department, we both agree the patient is appropriate for the EACU at this time.
[2016-11-03] MEDS: ASPIRIN 325 MG TAB PO SCH (23:37)
[2016-11-03] MEDS: PANTOPRAZOLE SODIUM 40 MG TAB PO SCH (23:37)
--- NOTE | 2016-11-04 10:22 | GDS ---
[f rep st] DISCHARGE SUMMARY DIAGNOSES: 1. Chest pain, suspected musculoskeletal. 2. Metastatic breast cancer. 3. History of teres major tear versus strain. HOSPITAL COURSE: A 50-year-old female, who presented with sudden onset of chest pain. She has a hi story of metastatic breast cancer. EKG is not overtly ischemic, troponins have been negative. CT a ngiogram showed no pulmonary embolus though it did show worsening of her pulmonary nodules. She was offered an inpatient stress test but would prefer not to proceed with that. I discussed this at [facility] with her. Given that she does have metastatic breast cancer, failing chemotherapy, I do not th ink this is unreasonable. I did also offer to set her up an outpatient stress test within a few day s; however, she also declined that. She will follow up with Dr. Sadia Montenegro as needed. She has seen her before and her follows with Dr. Montenegro for his heart conditions. I think most likely thi s is musculoskeletal though, as above, I offered a stress test to rule out any coronary artery disea se. /[id number]/MODL
[2016-11-04 10:33] VITALS: BP 98/62; PULSE 70; RESP 16; TEMP 97.5; O2SAT 96
[2016-11-04] MEDS: ASPIRIN 325 MG TAB PO SCH (10:33)
[2016-11-04] MEDS: PANTOPRAZOLE SODIUM 40 MG TAB PO SCH (10:34)
== END 2016-11-04 10:34 | disposition home or self-care (01) ==
LOC: F1N 22:35
PROVIDERS: ADMIT Internal Medicine; ATTEND Student in an Organized Health Care Education/Training Program
DX: R07.9 Chest pain, unspecified (principal); C50.919 Malignant neoplasm of unspecified site of unspecified female breast; S46.012D Strain of muscle(s) and tendon(s) of the rotator cuff of left shoulder, subsequent encounter; C78.00 Secondary malignant neoplasm of unspecified lung; C78.89 Secondary malignant neoplasm of other digestive organs; Z90.13 Acquired absence of bilateral breasts and nipples
CPT/HCPCS: 71275; 93005; G0378; 96374; J1642; J1885; Q9967

== ENCOUNTER 2016-11-11 19:55 | Emergency (ER) | payer OTHER ==
[2016-11-11] MEDS ORDERED: NS 500 ML IV ONE (22:02)
--- NOTE | 2016-11-11 22:37 | EDPHY ---
H & P Time Seen by Provider: 11/11/16 21:23 HPI/ROS: CHIEF COMPLAINT: Chest pain, fever HISTORY OF PRESENT ILLNESS: Patient is a 50-year-old female who presents emergency department with chest pain and fever. Patient has a history of metastatic recurrent breast cancer. She has been off chemotherapy for 2 months. She has had bilateral mastectomy with lymph node dissection. She was in the emergency department last Friday due to left chest pain. She had a negative CT angio at that time. She has since followed up with Dr. Leslie for ongoing pain. Dr. Leslie felt this was most likely musculoskeletal. The patient did not have a chest x-ray today because she is scheduled for outpatient CT imaging. However, upon returning home the patient developed fever. She spoke with Dr. Leslie who sent her to the emergency department for further evaluation. Patient complains of left lateral/posterior chest pain. He was originally left anterior but is now moved posteriorly. She has mild shortness of breath with no cough. No rash. No nausea or vomiting. REVIEW OF SYSTEMS: My complete review of systems is negative except as mentioned in the HPI. Past Medical/Surgical History: Includes metastatic breast cancer Past surgical history: Includes lumpectomy, hysterectomy, bilateral mastectomy , breast revision Social history: The patient is . She does not smoke. Smoking Status: Never smoked Physical Exam: Vitals noted. 37.3, 142/80, 59, 18, 95% on room air GENERAL: Well-appearing, in no acute distress, alert. HEENT: Eyes normal to inspection, normal pharynx, no signs of dehydration. NECK: No thyromegaly, no lymphadenopathy, supple. RESPIRATORY: Clear to auscultation bilaterally, no rales, rhonchi or wheezing. CVS: Regular rate and rhythm, no rubs, murmurs, or gallops. Chest: No rash. No tenderness palpation. ABDOMEN: Soft, nontender, nondistended, no organomegaly. BACK: Normal to inspection, no CVA tenderness. SKIN: Normal color, no rash, warm, dry. No pallor. EXTREMITIES: No pedal edema, no calf tenderness, no Homans sign or cords, no joint swelling. NEURO/PSYCH: Alert and oriented x3, normal mood and affect, normal motor sensory exam. Constitutional: Initial Vital Signs Temperature (C) 37.3 C 11/11/16 19:58 Heart Rate 59 L 11/11/16 19:58 Respiratory Rate 18 11/11/16 19:58 Blood Pressure 142/80 H 11/11/16 19:58 O2 Sat (%) 95 11/11/16 19:58 O2 Delivery Mode Room Air Allergies/Adverse Reactions: adhesive tape Allergy (Mild, Verified 11/11/16 20:01) citalopram hydrobromide [From Celexa] Allergy (Verified 11/11/16 20:01) codeine Allergy (Verified 11/11/16 20:01) CHLOR[place] Allergy (Uncoded 11/11/16 20:01) Rash Home Medications: Medication Instructions Recorded Escitalopram Oxalate [Lexapro 10 5 mg PO DAILY 09/23/16 MG] HYDROcodone/APAP 10/325 [[place] 0.5 - 1 tab PO Q6HRS PRN 09/23/16 10/325 (*)] LORazepam [Ativan (*)] 0.5 - 1 mg PO HS PRN 09/23/16 Cholecalciferol Vit D3 [Vitamin D3 1,000 units PO Q2D 11/03/16 (*)] Ibuprofen [Motrin (*)] 400 mg PO DAILY PRN 11/04/16 Medical Decision Making - Diagnostics Imaging Results: Imaging Impressions Chest X-Ray 11/11/16 22:02 Impression: 1. No acute findings in the chest. 2. Grossly stable pulmonary metastases. ED Course/Re-evaluation: In the emergency department I discussed possible etiologies with the patient. The patient consented to laboratory studies and chest x-ray. Of note I discussed the case with Dr. Leslie who called in prior to the patient's arrival. Dr. Leslie recommended chest x-ray and laboratory studies. Chest x-ray: Please refer the dictated report by Dr. Rafael Ventura. I reviewed the images with him personally. He states the images is stable. No new infiltrate. The patient's CBC showed a mild anemia. The white count was normal. Chemistry panel was unremarkable. I discussed the results with the patient. I answered all her questions. I do not feel she needs antibiotics at this time. She will follow up with Dr. Leslie tomorrow. She was given warnings prior to leaving. She will return with worsening symptoms. Differential Diagnosis: My differential includes but is not limited to pneumonia, bronchitis, pulmonary embolus, empyema, musculoskeletal pain, costochondritis, malignancy, fracture, electrolyte abnormality, sugar abnormality, bacteremia, sepsis - Data Points Laboratory Results: Laboratory Results 11/11/16 22:30 11/11/16 11/11/16 22:30 22:30 WBC 5.43 10^3/uL 10^3/uL (3.80-9.50) RBC 3.42 10^6/uL L 10^6/uL (4.18-5.33) Hgb 11.2 g/dL L g/dL (12.6-16.3) Hct 34.5 % L % (38.0-47.0) MCV 100.9 fL H fL (81.5-99.8) MCH 32.7 pg pg (27.9-34.1) MCHC 32.5 g/dL g/dL (32.4-36.7) RDW 14.6 % % (11.5-15.2) Plt Count 123 10^3/uL L 10^3/uL (150-400) MPV 10.8 fL fL (8.7-11.7) Neut % (Auto) 65.0 % % (39.3-74.2) Lymph % (Auto) 22.3 % % (15.0-45.0) [place] % (Auto) 10.1 % % (4.5-13.0) Eos % (Auto) 2.2 % % (0.6-7.6) Baso % (Auto) 0.2 % L % (0.3-1.7) Nucleat RBC Rel Count 0.0 % % (0.0-0.2) Absolute Neuts (auto) 3.53 10^3/uL 10^3/uL (1.70-6.50) Absolute Lymphs (auto) 1.21 10^3/uL 10^3/uL (1.00-3.00) Absolute Monos (auto) 0.55 10^3/uL 10^3/uL (0.30-0.80) Absolute Eos (auto) 0.12 10^3/uL 10^3/uL (0.03-0.40) Absolute Basos (auto) 0.01 10^3/uL L 10^3/uL (0.02-0.10) Absolute Nucleated RBC 0.00 10^3/uL 10^3/uL (0-0.01) Immature Gran % 0.2 % % (0.0-1.1) Immature Gran # 0.01 10^3/uL 10^3/uL (0.00-0.10) Sodium Pending Potassium Pending Chloride Pending Carbon Dioxide Pending Anion Gap Pending BUN Pending Creatinine Pending Estimated GFR Pending Glucose Pending Calcium Pending Troponin I Pending Medications Given: Discontinued Medications Sodium Chloride (Ns) 500 mls @ 0 mls/hr IV ONCE ONE PRN Reason: As Directed Stop: 11/11/16 22:03 Last Admin: 11/11/16 22:33 Dose: 500 mls Departure - Departure Disposition: Home, Routine, Self-Care Clinical Impression: Chest pain Qualifiers: Chest pain type: unspecified Qualified Code(s): R07.9 - Chest pain, unspecified Condition: Good Instructions: Chest Pain (ED) Additional Instructions: Return with increasing pain, shortness of breath, fever or any other concerns. Referrals: Kellie Leslie MD [Primary Care Provider] - 1-2 days without fail
[2016-11-11 22:44] LABS: % IMMATURE GRANULYOCYTES 0.2 % (0.0-1.1); ABSOLUTE IMMATURE GRANULOCYTES 0.01 10^3/uL (0.00-0.10); ADD DIFF? NO; ADD MORPH? NO; ADD SCAN? NO; ATYPICAL LYMPHOCYTE FLAG 30 (0-99); FRAGMENT RBC FLAG 0 (0-99); HEMATOCRIT 34.5 % (38.0-47.0); HEMOGLOBIN 11.2 g/dL (12.6-16.3); LEFT SHIFT FLG 20 (0-99); LIPEMIA HEMOLYSIS FLAG 80 (0-99); MEAN CELL HEMOGLOBIN 32.7 pg (27.9-34.1); MEAN CELL HEMOGLOBIN CONCENTR. 32.5 g/dL (32.4-36.7); MEAN CELL VOLUME 100.9 fL (81.5-99.8); MEAN PLATELET VOLUME 10.8 fL (8.7-11.7); PLATELET CLUMPS FLAG 0 (0-99); PLATELET COUNT 123 10^3/uL (150-400); RED BLOOD CELL COUNT 3.42 10^6/uL (4.18-5.33); RED CELL DISTRIBUTION WIDTH 14.6 % (11.5-15.2)
[2016-11-11 22:49] VITALS: BP 142/73; PULSE 63; RESP 14; TEMP 97.5; O2SAT 96
[2016-11-11 22:54] LABS: ANION GAP 7 mEq/L (8-16); CALCIUM 6.8 mg/dL (8.5-10.4); CARBON DIOXIDE 20 mEq/l (22-31); CHLORIDE 116 mEq/L (97-110); CREATININE 0.4 mg/dL (0.6-1.0); GLOMERULAR FILTRATION RATE > 60; GLUCOSE 67 mg/dL (70-100); POTASSIUM 3.1 mEq/L (3.5-5.2); SODIUM 143 mEq/L (134-144)
[2016-11-11 23:06] LABS: TROPONIN I < 0.012 ng/mL (0-0.034)
[2016-11-11] MEDS ORDERED: POTASSIUM CL 20 MEQ/15 ML UDCUP PO ONE (23:14)
[2016-11-11] MEDS ORDERED: LORazepam 1 MG TAB ONE (23:34)
[2016-11-11] MEDS ORDERED: LORazepam 1 MG TAB PO ONE (23:37)
[2016-11-12 17:12] LABS: ALBUMIN 2.6 g/dL (3.5-5.0); BILIRUBIN,TOTAL 0.6 mg/dL (0.1-1.4); BILIRUBIN-CONJUGATED 0.3 mg/dL (0.0-0.5); BILIRUBIN-UNCONJUGATED 0.3 mg/dL (0.0-1.1); TOTAL PROTEIN 5.3 g/dL (6.3-8.2)
== END 2016-11-11 23:41 | disposition home or self-care (01) ==
DX: R07.9 Chest pain, unspecified (principal); Z85.3 Personal history of malignant neoplasm of breast

== ENCOUNTER 2016-11-28 06:04 | Emergency (ER) | payer OTHER ==
[2016-11-28 06:13] VITALS: O2SAT 96
--- NOTE | 2016-11-28 06:54 | PDCONSULT ---
Class C Truck Driver Note: 51 y/o female with stage IV breast cancer presents with worsening thoraco- lumbar back pain after starting a clinical trial at the [facility] cancer center (Naraparib/Keytruda) The pain started after a day of horseback riding and fishing, but she denies fall or injury. She denies weakness/paresthesias She has mild constipation related to taking Bryan but denies nausea/vomiting/ melena/hematochezia. PMH: bilateral mastectomy 2014 stage IV breast CA SH: /here with Bill They live near [place] FH: [place] PE: chronically ill appearing female in mild distress negative cervical adenopathy Lungs: clear to ausc CVS RRR Abd: soft/non-tender back: no focal tenderness to midline palpation of the thoracolumbar spine neuro: DTR's lower ext. 0 (right) +2 left, intact motor/sensory exam pedal pulses +2/symmetrical skin: warm/dry Imp: severe/debilitating back pain known stage IV breast CA Rec: MRI thoracolumbar spine to rule out fracture/mets Add: MRI shows probably small volume metastatic disease in the vertebral bodies of T6, T11 and larger mets to L1 in addition to significant retroperitoneal adenopathy. I recommended she continue her current therapy and will consider focal RT for symptom management. Andre Leonardo MD, FACS
[2016-11-28 09:42] VITALS: BP 108/56; PULSE 68; RESP 18; TEMP 98.1
== END 2016-11-28 09:39 | disposition home or self-care (01) ==
DX: M54.5 Low back pain (principal)

== ENCOUNTER 2016-12-07 13:29 | Emergency (ER) | payer OTHER ==
--- NOTE | 2016-12-07 14:00 | EDPHY ---
H & P Stated Complaint: cancer pt/on narcotics/constipation/generalized abd pain and rash Source: Patient Exam Limitations: No limitations - Personal History LMP (Females 10-55): Hysterectomy Current Tetanus/Diphtheria Vaccine: Yes Tetanus Vaccine Date: within 10- years - Medical/Surgical History Hx Asthma: No Hx Chronic Respiratory Disease: No Hx Diabetes: No Hx Cardiac Disease: No Hx Renal Disease: No Hx Cirrhosis: No Hx Alcoholism: No Hx HIV/AIDS: No Hx Splenectomy or Spleen Trauma: No Other PMH: breast cancer. partial lumpectomy, node removed./HYSTERECTOMY, Left shoulder injury, METS IN THE LUNG AND LIVER - Social History Smoking Status: Never smoked Time Seen by Provider: 12/07/16 14:00 HPI/ROS: CHIEF COMPLAINT: Constipation, abdominal pain, rash over sacrum x2 weeks HISTORY OF PRESENT ILLNESS: The patient presents to the ED with several days of increasing constipation and abdominal pain. Additionally, she has had a rash over her sacrum for 2 weeks. The patient has been diagnosed with metastatic breast cancer. She is currently scheduled to travel to the [facility] for consideration of participation in a new trial. She recently been diagnosed with small metastatic lesions in her thoracolumbar spine. The patient has been using [id number] laxatives with some improvement of her symptoms today. The patient does have a history of known intra-abdominal metastasis. Patient has had nausea without vomiting. She denies additional acute complaints. REVIEW OF SYSTEMS: A comprehensive 10 point review of systems is otherwise negative aside from elements mentioned in the history of present illness. (Yamil Khalil) - Physical Exam Exam: General Appearance: Thin female, mild distress from pain Eyes: Pupils equal and round no pallor or injection ENT, Mouth: Dry mucous membranes Respiratory: There are no retractions, lungs are clear to auscultation, port to chest wall Cardiovascular: Regular rate and rhythm Gastrointestinal: Abdomen is soft and nontender, no masses, bowel sounds normal Neurological: A&O, normal motor function, normal sensory exam, normal cranial nerves Skin: Rash on back consistent with possible resolving herpes zoster Musculoskeletal: Neck is supple nontender Extremities: symmetrical, full range of motion (Yamil Khalil) Constitutional: Initial Vital Signs Temperature (C) 36.9 C 12/07/16 13:34 Heart Rate 91 12/07/16 13:34 Respiratory Rate 18 12/07/16 13:34 Blood Pressure 138/94 H 12/07/16 13:34 O2 Sat (%) 93 12/07/16 13:34 O2 Delivery Mode Room Air Allergies/Adverse Reactions: adhesive tape Allergy (Mild, Verified 12/07/16 13:33) citalopram hydrobromide [From Celexa] Allergy (Verified 12/07/16 13:33) codeine Allergy (Verified 12/07/16 13:33) CHLORA Allergy (Uncoded 11/11/16 20:01) Rash Home Medications: Medication Instructions Recorded Escitalopram Oxalate [Lexapro 10 5 mg PO DAILY 09/23/16 MG] HYDROcodone/APAP [Melrose 0.5 - 1 tab PO Q6HRS PRN 09/23/16 (*)] LORazepam [Ativan (*)] 0.5 - 1 mg PO HS PRN 09/23/16 Cholecalciferol Vit D3 [Vitamin D3 1,000 units PO Q2D 11/03/16 (*)] Ibuprofen [Motrin (*)] 400 mg PO DAILY PRN 11/04/16 Compazine 11/28/16 Keytruda 11/28/16 Lexapro 11/28/16 Naraparib 11/28/16 Ms Contin 12/07/16 Medical Decision Making - Diagnostics Imaging Results: Imaging Impressions Abdomen X-Ray 12/07/16 15:00 Impression: 1. Abdomen negative for acute localizing features. 2. Metastatic disease in the chest with multiple pulmonary nodules identified. ED Course/Re-evaluation: The patient's port was accessed. She received IV Reglan, normal saline and 1 mg of IV Dilaudid. Patient presents to the ED with constipation likely secondary to her chronic narcotic usage. She also has a rash on her back which is suggestive of zoster. It has been present for 2 weeks. At this point time there would not being indication for antiviral medications or prednisone. The patient has no evidence of an acute abdomen. The patient will undergo a KUB to assess how constipated the patient is. The patient would like to be discharged home so that she can travel to the [facility] for evaluation of experience mental therapy. Patient will be turned over to Dr. Nicholas Alas at shift change pending reassessment. (Yamil Khalil) Other Provider: Care assumed from Simran at 3:30 p.m.. Plan was to give her 2 L of IV fluids, do a KUB, discharge the patient and she will fly to her out of state appointment tomorrow. Patient was re-evaluated at 4:15 p.m.. KUB personally interpreted does not show constipation or air fluid levels or bowel obstruction or dilated stomach. Limitations of diagnostic study of a KUB discussed with the patient, including the fact that I can' t comment on ascites or intraperitoneal cancer based on x- ray. Patient still wants primarily just pain control and be discharged. She will fly tomorrow to her appointment. Does not want admission. (Nicholas Alas) - Data Points Laboratory Results: Laboratory Results 12/07/16 15:00 12/07/16 15:00 12/07/16 12/07/16 15:00 15:00 WBC 3.41 10^3/uL L 10^3/uL (3.80-9.50) RBC 3.54 10^6/uL L 10^6/uL (4.18-5.33) Hgb 11.4 g/dL L g/dL (12.6-16.3) Hct 34.2 % L % (38.0-47.0) MCV 96.6 fL fL (81.5-99.8) MCH 32.2 pg pg (27.9-34.1) MCHC 33.3 g/dL g/dL (32.4-36.7) RDW 13.2 % % (11.5-15.2) Plt Count 25 10^3/uL L* 10^3/uL (150-400) MPV 12.6 fL H fL (8.7-11.7) Neut % (Auto) 77.4 % H % (39.3-74.2) Lymph % (Auto) 13.2 % L % (15.0-45.0) Hardin % (Auto) 7.6 % % (4.5-13.0) Eos % (Auto) 1.2 % % (0.6-7.6) Baso % (Auto) 0.3 % % (0.3-1.7) Nucleat RBC Rel Count 0.0 % % (0.0-0.2) Absolute Neuts (auto) 2.64 10^3/uL 10^3/uL (1.70-6.50) Absolute Lymphs (auto) 0.45 10^3/uL L 10^3/uL (1.00-3.00) Absolute Monos (auto) 0.26 10^3/uL L 10^3/uL (0.30-0.80) Absolute Eos (auto) 0.04 10^3/uL 10^3/uL (0.03-0.40) Absolute Basos (auto) 0.01 10^3/uL L 10^3/uL (0.02-0.10) Absolute Nucleated RBC 0.00 10^3/uL 10^3/uL (0-0.01) Immature Gran % 0.3 % % (0.0-1.1) Immature Gran # 0.01 10^3/uL 10^3/uL (0.00-0.10) Platelet Estimate DECREASED L (ADEQ) Smear Review By Pending Sodium 136 mEq/L mEq/L (134-144) Potassium 3.9 mEq/L mEq/L (3.5-5.2) Chloride 97 mEq/L mEq/L (97-110) Carbon Dioxide 24 mEq/l mEq/l (22-31) Anion Gap 15 mEq/L mEq/L (8-16) BUN 14 mg/dL mg/dL (7-23) Creatinine 0.6 mg/dL mg/dL (0.6-1.0) Estimated GFR > 60 Glucose 87 mg/dL mg/dL (70-100) Calcium 9.5 mg/dL mg/dL (8.5-10.4) Medications Given: Discontinued Medications Chlordiazepoxide HCl (Librium) 50 mg PO EDNOW ONE Stop: 12/07/16 15:21 Last Admin: 12/07/16 15:27 Dose: Not Given Famotidine (Pepcid) 20 mg IVP EDNOW ONE Stop: 12/07/16 17:28 Last Admin: 12/07/16 17:42 Dose: 20 mg Hydromorphone HCl (Dilaudid) 1 mg IVP EDNOW ONE Stop: 12/07/16 15:32 Last Admin: 12/07/16 15:50 Dose: 1 mg Hydromorphone HCl (Dilaudid) 1 mg IVP EDNOW ONE Stop: 12/07/16 17:11 Last Admin: 12/07/16 17:26 Dose: 1 mg Sodium Chloride (Ns) 1,000 mls @ 0 mls/hr IV ONCE ONE; Wide Open PRN Reason: Protocol Stop: 12/07/16 14:29 Last Admin: 12/07/16 15:03 Dose: 1,000 mls Prochlorperazine Maleate (Compazine) 5 mg PO EDNOW ONE Stop: 12/07/16 15:29 Last Admin: 12/07/16 16:14 Dose: Not Given Departure - Departure Disposition: Home, Routine, Self-Care Clinical Impression: Abdominal pain, Constipation, Rash Condition: Good Instructions: Constipation (ED) Additional Instructions: 1. Return to the ED for severe abdominal pain, fever, intractable vomiting or other concerns. 2. I believe the rash in your back may be secondary to a remote outbreak of shingles. At this point time there be no benefit to starting acyclovir or a steroid. It should resolve slowly over the next several weeks. 3. Please follow up with your primary care provider and oncologist as scheduled. Referrals: Kellie Leslie MD [Primary Care Provider] - As per Instructions
[2016-12-07] MEDS ORDERED: NS 1,000 ML IV ONE (14:28)
[2016-12-07] MEDS ORDERED: chlordiazePOXIDE 25 MG CAP PO ONE (15:20)
[2016-12-07 15:25] LABS: % IMMATURE GRANULYOCYTES 0.3 % (0.0-1.1); ABSOLUTE IMMATURE GRANULOCYTES 0.01 10^3/uL (0.00-0.10); ADD DIFF? NO; ADD MORPH? NO; ADD SCAN? NO; ATYPICAL LYMPHOCYTE FLAG 0 (0-99); FRAGMENT RBC FLAG 0 (0-99); HEMATOCRIT 34.2 % (38.0-47.0); HEMOGLOBIN 11.4 g/dL (12.6-16.3); LEFT SHIFT FLG 40 (0-99); LIPEMIA HEMOLYSIS FLAG 80 (0-99); MEAN CELL HEMOGLOBIN 32.2 pg (27.9-34.1); MEAN CELL HEMOGLOBIN CONCENTR. 33.3 g/dL (32.4-36.7); MEAN CELL VOLUME 96.6 fL (81.5-99.8); MEAN PLATELET VOLUME 12.6 fL (8.7-11.7); PLATELET CLUMPS FLAG 0 (0-99); RED BLOOD CELL COUNT 3.54 10^6/uL (4.18-5.33); RED CELL DISTRIBUTION WIDTH 13.2 % (11.5-15.2)
[2016-12-07] MEDS ORDERED: PROCHLORPERAZINE MALEATE 10 MG TAB PO ONE (15:28)
[2016-12-07 15:29] LABS: PLATELET COUNT 25 10^3/uL (150-400)
[2016-12-07] MEDS ORDERED: HYDROmorphONE/DILAUDID 1 MG/ML SYR IVP ONE ×2 (15:31→17:10)
[2016-12-07 15:37] LABS: ANION GAP 15 mEq/L (8-16); CALCIUM 9.5 mg/dL (8.5-10.4); CARBON DIOXIDE 24 mEq/l (22-31); CHLORIDE 97 mEq/L (97-110); CREATININE 0.6 mg/dL (0.6-1.0); GLOMERULAR FILTRATION RATE > 60; GLUCOSE 87 mg/dL (70-100); POTASSIUM 3.9 mEq/L (3.5-5.2); SODIUM 136 mEq/L (134-144)
[2016-12-07 16:00] LABS: PLATELET ESTIMATE DECREASED (ADEQ)
[2016-12-07] MEDS ORDERED: FAMOTIDINE 20 MG/2 ML SDV IVP ONE (17:27)
[2016-12-07 18:14] VITALS: BP 118/76; PULSE 76; RESP 16; TEMP 97.7; O2SAT 95
== END 2016-12-07 18:14 | disposition home or self-care (01) ==
DX: K59.00 Constipation, unspecified (principal); R21 Rash and other nonspecific skin eruption; Z85.3 Personal history of malignant neoplasm of breast; Z90.710 Acquired absence of both cervix and uterus
CPT/HCPCS: 96374; J1170

== ENCOUNTER 2017-01-07 13:01 | Inpatient (IN) | payer OTHER ==
[2017-01-07] MEDS ORDERED: METOCLOPRAMIDE 10 MG/2 ML VIAL IVP PRN (14:19)
[2017-01-07] MEDS ORDERED: ACETAMINOPHEN 325 MG TAB PO PRN (14:19)
[2017-01-07] MEDS ORDERED: PROMETHAZINE HCL 25 MG/ML INJ IVP PRN ×2 (14:19→20:57)
[2017-01-07] MEDS ORDERED: BISACODYL 10 MG SUPP PR PRN (14:22)
[2017-01-07] MEDS ORDERED: POLYETHYLENE GLYCOL 3350 17 GM PKT PO PRN (14:22)
[2017-01-07] MEDS ORDERED: MAGNESIUM HYDROXIDE 30 ML UDCUP PO PRN (14:22)
[2017-01-07] MEDS ORDERED: LACTULOSE 20 GM/30 ML UDCUP PO PRN (14:22)
[2017-01-07] MEDS ORDERED: METHYLNALTREXONE BROMIDE 12 MG/0.6 ML INJ SC ONE (14:30)
[2017-01-07] MEDS: LORazepam 2 MG/ML INJ IVP PRN ×2 (15:12→23:56)
--- NOTE | 2017-01-07 15:26 | GHP ---
[f rep st] HISTORY AND PHYSICAL DATE OF ADMISSION: 01/07/2017 CHIEF COMPLAINT: Abdominal pain, nausea, constipation. HISTORY OF PRESENT ILLNESS: The patient is a 51-year-old with a history significant for triple-nega tive metastatic breast cancer followed by Dr. Russo. She has had multiple recurrences, recently vicki ated with chemotherapy at [facility] and failed, please refer to Dr. Solis's note for full detai ls of her cancer. She has noted increasing difficulty with constipation and abdominal discomfort ov er the last 2 months. It has escalated over the last 2 weeks to a point where she feels ongoing pre ssure in her upper abdomen, chronic reflux-type symptoms, and decreased bowel movements. She is on narcotics and it is unclear how regularly she takes stool softeners. She went to [facility] for fo llowup 6 days ago complaining of these symptoms and they did a CT scan of her chest, abdomen, and pe lvis, which revealed no bowel obstruction but she did have an enlarging liver and they felt her symp toms were secondary to liver size. Since coming home, she said her pain has gotten more severe as h as her nausea. She called the oncologist on-call in the middle of the night complaining of pain. W hen she followed up this morning with Dr. Russo's office, he admitted her to the hospital for furthe r evaluation and treatment of her abdominal pain. She has had some low-grade fevers for the last co uple months; her temperature did get up to 100.7 last night. She has been eating fairly well up unt il last night. She denies significant chest pain, shortness of breath, or coughing. She has had on going nausea with minimal emesis. Her last bowel movement was a couple days ago with an enema and i t was just a small amount of liquid. She has occasional lower extremity swelling but most of her di scomfort is from her abdomen. She does have some back and rib pain at the site of her metastatic di sease, but again, that is fairly well controlled on her current narcotic regimen. REVIEW OF SYSTEMS: A 10-point review of systems was done. Including constitutional, eyes, ENT, end ocrine, cardiovascular, pulmonary, abdomen, , musculoskeletal, and neuro. (Pertinent positives pr esent in HPI.) PAST MEDICAL HISTORY: 1. Triple-negative breast cancer. Please refer to Oncology note. 2. Anemia. 3. Depression. 4. Chronic pain with continuous narcotic dependency. SOCIAL HISTORY: She is . No current tobacco use. FAMILY HISTORY: Reviewed. CURRENT MEDICATIONS: Please see medication reconciliation list. ALLERGIES: Adhesive tape, Celexa, codeine, and ChloraPrep causing a rash. PHYSICAL EXAMINATION: GENERAL: She is a thin, 51-year-old, in moderate distress. She is alert and oriented. HEENT: Pupils are small but reactive. Extraocular movements intact. Sclerae are anict marisela. Mucous membranes are dry. Oropharynx clear. NECK: Supple without within lymphadenopathy. No carotid bruits. Thyroid within normal limits. HEART: Regular rate and rhythm. No murmur, gall op, or rub. LUNGS: Clear bilaterally. Slightly diminished breath sounds. ABDOMEN: Slightly dist ended but soft to palpation with no rebound or guarding. Diffuse tenderness especially in the right upper quadrant. She does have an enlarged liver noted on exam. EXTREMITIES: No clubbing, cyanosi s, or edema. MUSCULOSKELETAL: No joint deformities or effusions. SKIN: No rash. NEUROLOGIC: He r speech is fluent. She is oriented. She is moving all 4 extremities. LABORATORY DATA: CBC shows a white count of 2.88, with 81% neutrophils, hemoglobin 11.7, platelet c ount 91. Chemistry shows normal electrolytes, BUN 18, creatinine 0.5. LFTs are elevated with an T of 317, ALT of 177, and alkaline phosphatase is 604, total bilirubin 1.5. ASSESSMENT AND PLAN: 51-year-old presents with increased abdominal pain, nausea for 2 months, worse christina over the last 2 weeks. She has already had an evaluation with CT scans of her chest, abdomen, and pelvis. Report from her states she had hepatomegaly but no bowel obstruction. I suspec t most of her symptoms are likely from constipation from her continuous narcotic dependency but will do further evaluation while she is here. PLAN: 1. Check KUB to rule out obvious obstruction. Check electrolytes and replace. For ileus, hydrate her, start bowel protocol, and a dose of Relistor. If she continues to do poorly, could consider Ga strografin enema tomorrow. 2. Weakness, fatigue, failure to thrive. This is likely multifactorial due to her cancer, recent c hemo, chronic pain. Again, continue supportive care with IV fluids. Pain management, will continue her MS Contin and add IV Dilaudid as needed. 3. History of depression/anxiety. Currently on Celexa. Will add p.r.n. lorazepam while she is her e in the hospital. 4. DVT prophylaxis. Patient moderate-high risk. Will start her on low-molecular weight heparin. Patient new to me, chart reviewed, discussed with Dr. Nola Solis. /[id number]/MODL
[2017-01-07 15:34] LABS: MAGNESIUM 2.2 mg/dL (1.6-2.3)
[2017-01-07] MEDS: HYDROmorphONE/DILAUDID 1 MG/ML SYR IVP PRN ×5 (15:48→23:48)
[2017-01-07 15:54] LABS: % IMMATURE GRANULYOCYTES 2.5 % (0.0-1.1); ABSOLUTE IMMATURE GRANULOCYTES 0.07 10^3/uL (0.00-0.10); ADD DIFF? NO; ADD MORPH? NO; ADD SCAN? YES; ATYPICAL LYMPHOCYTE FLAG 0 (0-99); FRAGMENT RBC FLAG 20 (0-99); HEMATOCRIT 35.5 % (38.0-47.0); HEMOGLOBIN 11.6 g/dL (12.6-16.3); LEFT SHIFT FLG 70 (0-99); LIPEMIA HEMOLYSIS FLAG 80 (0-99); MEAN CELL HEMOGLOBIN CONCENTR. 32.7 g/dL (32.4-36.7); MEAN CELL VOLUME 98.1 fL (81.5-99.8); MEAN PLATELET VOLUME 10.6 fL (8.7-11.7); PLATELET CLUMPS FLAG 0 (0-99); PLATELET COUNT 86 10^3/uL (150-400); RED BLOOD CELL COUNT 3.62 10^6/uL (4.18-5.33); RED CELL DISTRIBUTION WIDTH 15.6 % (11.5-15.2)
[2017-01-07 17:17] LABS: SCAN NEGATIVE
[2017-01-07] MEDS: NS 1,000 ML IV SCH (18:04)
[2017-01-07] MEDS ORDERED: HYDROCODONE/APAP 10/325 TAB PO PRN (18:11)
[2017-01-07] MEDS ORDERED: DEXAMETHASONE 4 MG TAB PO PRN (18:11)
[2017-01-07] MEDS: LORazepam 0.5 MG TAB PO PRN (20:16)
[2017-01-07] MEDS: PANTOPRAZOLE SODIUM 40 MG in NS 100 ML IV SCH (20:16)
[2017-01-07] MEDS ORDERED: PROCHLORPERAZINE MALEATE 10 MG TAB PO PRN (20:57)
[2017-01-07] MEDS: morphINE SR 30 MG TAB PO SCH (21:09)
[2017-01-07] MEDS: SENNOSIDES/DOCUSATE SODIUM TAB PO SCH (21:32)
[2017-01-07 21:46] LABS: COLOR YELLOW; LEUKOCYTE ESTERASE,URINE 2+ (NEGATIVE); NITRITE,URINE POSITIVE (NEGATIVE)
[2017-01-07 22:29] LABS: BACTERIA TRACE /hpf (NONE SEEN); MUCUS TRACE /lpf (NONE-1+); WBC,URINE 50-182 /hpf (0-3)
--- NOTE | 2017-01-07 22:42 | GCON ---
[f rep st] CONSULTATION NEW PATIENT CONSULTATION. REASON FOR CONSULTATION: Patient known to my partner, Dr. Russo, with metastatic triple negative br east cancer admitted for nausea, vomiting, and fatigue. Here to rule out small-bowel obstruction. HISTORY OF PRESENT ILLNESS: The patient has an extensive history of breast cancer. After chart rev iew, it seems like the patient was initially diagnosed with a right-sided breast cancer in 1992 when she was 27 years old. To the best of my knowledge it was ER, OK negative. She received IV CMF and was treated with lumpectomy, axillary dissection, and radiation therapy. She then was diagnosed wi th a suspicious mass in mid 2014 and this again was triple negative, felt to be a medullary carcinom a. BRA testing in 2005 was negative. At that time, she had a hysterectomy and unilateral oophorect tawana on the left side. After the contralateral breast cancer was diagnosed 22 years later after init ial diagnosis the patient had bilateral mastectomies. She did end up getting adjuvant TC x4. She co mpleted this in 2014. She then had what sounds to be systemic recurrence, possibly bone only, and t hen developed numerous bilateral pulmonary nodules and suspicious lymph nodes. She has also had hep atic metastasis. She was treated with gemcitabine, as well as carboplatin and then more recently we nt on to [facility] to participate in a clinical trial with Niraparib and Keytruda. reports she has not had the Neratinib in about 3 weeks due to thrombocytopenia. She had inc reasing LFTs and recent CT chest, abdomen, pelvis about 1 week ago that reports shows progre ssion. She has been initiated on eribulin as next line therapy with Dr. Russo and received her most recent dose on 01/03/2017. Last night I received a call from patient's reporting a fever 100.7, the patient was feeling poorly. Her counts on December 23 showed a white blood cell count 2.54, hemoglobin 11, and platelet co unt of a 129,000. Her ANC was 1.85. Apparently overnight symptoms became worse. Started to have a lot of abdominal pain, nausea, and dry heaves. She notes she has not had a bowel movement in about a week. She is intermittently taking stool softeners and bowel regimen. She takes OxyContin, as w ell as p.r.n. Eunice pretty routinely. She denies further fevers. Denies cough or shortness of breath. She is very uncomfortable. Reports upper abdomen bloating. Denies any lower extremity edema. PAST MEDICAL HISTORY: History of breast cancer, multiple lines of chemotherapy. Most recent triple negative. History of iron deficiency anemia, as well as chemotherapy-related anemia, history of na usea, dehydration in conjunction with chemotherapy. I was unable to get further history as patient is tired and not wanting to answer questions. FAMILY HISTORY: Does not report a family history of breast cancer. She has had genetic testing. MEDICATIONS: Have been reviewed. PHYSICAL EXAMINATION: VITAL SIGNS: Vital signs today have not yet been recorded but in the office blood pressure was 92/66, pulse of 115, respiration 12, temperature 98.6, O2 saturation 96% room air . GENERAL: Fatigued, nontoxic appearing but uncomfortable. HEENT: Anicteric. HEART: Regular rate and rhythm. LUNGS: Clear to auscultation bilaterally. NECK: No supraclavicular lymphadenopathy. Port intact left upper chest. ABDOMEN: Soft. Bowel sounds are decreased. Mild tender to palpati on throughout. EXTREMITIES: Lower extremities no significant edema. NEUROLOGIC: Nonfocal. SKIN: No rash. LABORATORY DATA: Labs done today in the office show white blood cell count of 2.8, hemoglobin 11.7, platelet count 91,000. Her ANC is 2.34. CMP is pending. ASSESSMENT/PLAN: Patient is a 51-year-old unfortunate woman with metastatic triple negative breast cancer. She has been on multiple lines of therapy and more recently been diagnosed with metastatic disease. She was on a clinical trial at [facility] including Niraparib and Keytruda, although nico ent reports progression. Was recently started on eribulin with Dr. Russo. Today she presents with w orsening abdominal pain, constipation, fatigue, and dehydration. 1. Constipation. I think this is opioid induced. I am not clear if she has a small bowel obstruct ion at this time. Recent films done a week ago did not suggest this per . I am trying to ob tain the CD and will get it downloaded here. Plan for a KUB and conservative management with IV flu ids. Also recommended Relistor as a trial for opioid-induced constipation. Would continue stool so fteners and prophylactic management of opioid-induced constipation. Patient is refusing an NG tube at this time. We will follow clinically. 2. Fatigue, dehydration. Multifactorial. IV fluids today. We will check labs, as well as electro lytes to make sure this is not contributing. 3. As far as breast cancer. Currently on eribulin. Too early to tell if she is having a response or not to this therapy. She does have a couple options left as an outpatient, although probably wit h diminishing return. Sounds like she has liver, bone, and lung mets which is worrisome. 4. Cytopenias. These are mild. No transfusion required. She is not neutropenic and does not requ fabrizio GCSF at this time. We will continue to monitor conservatively with labs. /[id number]/MODL
[2017-01-08] MEDS: HYDROmorphONE/DILAUDID 1 MG/ML SYR IVP PRN ×4 (02:32→22:53)
[2017-01-08] MEDS: NS 1,000 ML IV SCH (02:32)
[2017-01-08] MEDS ORDERED: IBUPROFEN 200 MG TAB PO ONE (03:15)
[2017-01-08] MEDS: morphINE SR 30 MG TAB PO SCH ×3 (05:42→22:48)
[2017-01-08 05:58] LABS: ADD DIFF? YES; ADD MORPH? NO; ATYPICAL LYMPHOCYTE FLAG 0 (0-99); FRAGMENT RBC FLAG 20 (0-99); HEMATOCRIT 30.9 % (38.0-47.0); LIPEMIA HEMOLYSIS FLAG 80 (0-99); MEAN CELL HEMOGLOBIN 32.6 pg (27.9-34.1); MEAN CELL HEMOGLOBIN CONCENTR. 32.4 g/dL (32.4-36.7); MEAN CELL VOLUME 100.7 fL (81.5-99.8); MEAN PLATELET VOLUME 12.6 fL (8.7-11.7); PLATELET CLUMPS FLAG 0 (0-99); PLATELET COUNT 77 10^3/uL (150-400); RED BLOOD CELL COUNT 3.07 10^6/uL (4.18-5.33); RED CELL DISTRIBUTION WIDTH 15.8 % (11.5-15.2)
[2017-01-08 06:11] LABS: LEFT SHIFT FLG 160 (0-99)
[2017-01-08 06:12] LABS: ADD SCAN? NO
[2017-01-08 06:20] LABS: ALANINE AMINOTRANSFERASE 146 IU/L (9-52); ALBUMIN 2.8 g/dL (3.5-5.0); ALKALINE PHOSPHATASE 512 IU/L (38-126); ANION GAP 11 mEq/L (8-16); ASPARTATE AMINOTRANSFERASE 245 IU/L (14-46); BILIRUBIN,TOTAL 1.4 mg/dL (0.1-1.4); CALCIUM 8.5 mg/dL (8.5-10.4); CARBON DIOXIDE 24 mEq/l (22-31); CHLORIDE 102 mEq/L (97-110); CREATININE 0.6 mg/dL (0.6-1.0); GLOMERULAR FILTRATION RATE > 60; GLUCOSE 67 mg/dL (70-100); POTASSIUM 4.1 mEq/L (3.5-5.2); SODIUM 137 mEq/L (134-144); TOTAL PROTEIN 5.7 g/dL (6.3-8.2)
[2017-01-08 07:39] LABS: HYPOCHROMIA 1+; MACROCYTES 1+; PLATELET ESTIMATE DECREASED (ADEQ)
[2017-01-08] MEDS ORDERED: NON-FORMULARY NEW DRUG (Escitalopram Oxalate [Lexapro] 5 MG) PO SCH (09:00)
--- NOTE | 2017-01-08 09:29 | SOAPPROG ---
SOAP Progress Note Assessment/Plan: Assessment/Plan: 51 yo w stage IV TNBC admitted w sever constipation/ileus, fatigue, nausea 1. Constipation - s/p relistor w success; large BM yesterday KUB without abnormalities electrolytes ok cont current stool regimen and IV fluids 2. Fatigue/malaise - no fevers here counts dropping but does not need transfusion of GCSF at this point check urine culture 3. Breast ca - more recent [facility] and scans w progression s/p C1D1 Eribulin as next line therapy on 01/04/2017, next dose due this Friday but may need to delay until following Friday depending on how she does; dose reduction likely required based on LFTs Too early to assess response will download recent CT CAP from [facility] that showed progression 4. Nausea - add aloxi today ativan, phenergan and compazine prn cont IVF did not respond to olanzapine previously 5. DVT ppx - lovenox as long as plts >70k 01/08/17 09:18 01/08/17 09:29 Subjective: Large BM yesterday and feeling better abdomen still "sore" Objective: Vital Signs Temp Pulse Resp BP Pulse Ox 36.7 C 84 16 102/65 93 01/08/17 07:57 01/08/17 07:57 01/08/17 07:57 01/08/17 07:57 01/08/17 07:57 Laboratory Results 01/08/17 05:45 01/08/17 05:45 01/07/17 01/08/17 01/09/17 05:59 05:59 05:59 Intake Total 1662 Output Total 700 Balance 962 Gen - chronicaly ill appearing, NAD HEENT - anicteric CV - RRR Chest - CTAB Abd - soft, mild TTP mid abdomen liver enlarged? BS + Ext - no sig edema Neuro - nonfocal ICD10 Worksheet Patient Problems: Problems Problem Status Onset Breast cancer greater than 0.1 cm and less than or equal to 0.5 cm in greatest dimension Acute Chest pain Acute
[2017-01-08] MEDS ORDERED: PALONOSETRON HCL 0.25 MG/5 ML VIAL IVP ONE (09:30)
[2017-01-08] MEDS: PANTOPRAZOLE SODIUM 40 MG in NS 100 ML IV SCH (09:46)
[2017-01-08] MEDS: ESCITALOPRAM OXALATE 10 MG TAB PO SCH (09:46)
[2017-01-08] MEDS: SENNOSIDES/DOCUSATE SODIUM TAB PO SCH ×2 (09:47→20:24)
[2017-01-08] MEDS: ENOXAPARIN 40 MG/0.4 ML SYR SC SCH (09:47)
--- NOTE | 2017-01-08 10:26 | HOSPPROG ---
Hospitalist Progress Note Assessment/Plan: 56 yo female with hx of tripple neg metastatic BC followed by Dr. Russo admitted for abd pain, nausea, constipation, and questionable fever. Imaging negative for bowel obstruction. Has been afebrile here #Abd pain/Nause/Constipation Opiate induced -Cont with stool regime -s/p Relistor x one with resolution of constipation -Adv diet today #?Fever, none since here -UCx pending #Dehydration: decreasing IVF today #BC with know mets to liver, bone, and lungs #Neutropenia #Depression #Chronic Pain Syndrome #Weakness and deconditioning Plan: -Adv Diet -Stool Regimen -Decrease IVF -Lovenox for DVT proph as long as platelets are above 70 -Anticipate discharge soon Subjective: Large BM yesterday afternoon. Abd disomfort present but improving. No Nausea. Afebrile. First encounter with this patient. Objective: Vital Signs Temp Pulse Resp BP Pulse Ox 36.7 C 84 16 102/65 93 01/08/17 07:57 01/08/17 07:57 01/08/17 07:57 01/08/17 07:57 01/08/17 07:57 Laboratory Results 01/08/17 05:45 01/08/17 05:45 01/07/17 01/08/17 01/09/17 05:59 05:59 05:59 Intake Total 1662 Output Total 700 Balance 962 - Physical Exam Constitutional: no apparent distress, appears nourished Eyes: PERRL, EOMI Ears, Nose, Mouth, Throat: moist mucous membranes, hearing normal Cardiovascular: regular rate and rhythym, no murmur, rub, or gallop Respiratory: no respiratory distress, no rales or rhonchi, clear to auscultation Gastrointestinal: other (soft, non distend, mild gen tenderness, decreased BS) Genitourinary: no bladder fullness, no bladder tenderness, no renal bruits Skin: no rashes or abrasions, no fluctuance, no induration Musculoskeletal: generalized weakness Neurologic: AAOx3 Psychiatric: interacting appropriately, not anxious, not encephalopathic ICD10 Worksheet Patient Problems: Problems Problem Status Onset Breast cancer greater than 0.1 cm and less than or equal to 0.5 cm in greatest dimension Acute Chest pain Acute
[2017-01-08] MEDS: LORazepam 2 MG/ML INJ IVP PRN (16:57)
[2017-01-08] MEDS: LORazepam 0.5 MG TAB PO PRN (20:02)
[2017-01-08] MEDS: PANTOPRAZOLE SODIUM 40 MG TAB PO SCH (20:02)
[2017-01-09] MEDS: HYDROmorphONE/DILAUDID 1 MG/ML SYR IVP PRN (01:15)
[2017-01-09] MEDS: morphINE SR 30 MG TAB PO SCH ×3 (05:55→21:27)
[2017-01-09] MEDS: NS 1,000 ML IV SCH (05:56)
[2017-01-09 06:54] LABS: ANION GAP 12 mEq/L (8-16); CALCIUM 8.2 mg/dL (8.5-10.4); CARBON DIOXIDE 22 mEq/l (22-31); CHLORIDE 102 mEq/L (97-110); CREATININE 0.5 mg/dL (0.6-1.0); GLOMERULAR FILTRATION RATE > 60; GLUCOSE 72 mg/dL (70-100); POTASSIUM 3.9 mEq/L (3.5-5.2); SODIUM 136 mEq/L (134-144)
--- NOTE | 2017-01-09 08:07 | PDCONSULT ---
Phlebotomy Director Note: Mandy was admitted with severe obstipation/neutropenia, stage IV breast CA. She feels somewhat better today after a large BM yesterday, but remains extremely weak and with mild nausea. She plans on continuing with chemotherapy when she regains some strength. Andre Leonardo MD, FACS
[2017-01-09] MEDS: ESCITALOPRAM OXALATE 10 MG TAB PO SCH (08:28)
[2017-01-09] MEDS: SENNOSIDES/DOCUSATE SODIUM TAB PO SCH ×2 (08:28→21:28)
[2017-01-09] MEDS: PANTOPRAZOLE SODIUM 40 MG TAB PO SCH (08:28)
[2017-01-09] MEDS: LACTULOSE 20 GM/30 ML UDCUP PO SCH ×3 (08:28→21:28)
[2017-01-09] MEDS: ENOXAPARIN 40 MG/0.4 ML SYR SC SCH (08:28)
--- NOTE | 2017-01-09 09:08 | SOAPPROG ---
SOAP Progress Note Assessment/Plan: Assessment/Plan: 51 yo w stage IV TNBC admitted w sever constipation/ileus, fatigue, nausea 1. Constipation - s/p relistor w success; large BM 01/07 but nothing more KUB without abnormalities electrolytes ok cont aggressive stool regimen and IV fluids may need another dose of relistor 2. Fatigue/malaise - no fevers here counts dropping but does not need transfusion or GCSF at this point urine culture pending 3. Breast ca - more recent immunotherapy at [facility] and scans w progression s/p C1D1 Eribulin as next line therapy on 01/04/2017, next dose due this Friday but will delay until following week as she gains strength; dose reduction likely required based on LFTs Too early to assess response will download recent CT CAP from [facility] that showed progression 4. Nausea - add aloxi yesterday ativan, phenergan and compazine prn cont IVF did not respond to olanzapine previously 5. DVT ppx - lovenox as long as plts >70k 6. elevated LFTs - chemo + tumor monitor Bili ok 01/09/17 09:05 Subjective: No acute events feeling better but slowly no more BMs yesterday tolerating po Objective: Vital Signs Temp Pulse Resp BP Pulse Ox 37.1 C 88 15 106/68 93 01/09/17 06:05 01/09/17 06:05 01/09/17 06:05 01/09/17 06:05 01/09/17 06:05 Laboratory Results 01/08/17 05:45 01/09/17 06:30 01/08/17 01/09/17 01/10/17 05:59 05:59 05:59 Intake Total 1662 1600 Output Total 700 1502 Balance 962 98 Gen - chronically ill appearing HEENT - anicteric CV - RRR Lungs - CTA Abd - soft, decreased BS, mild TTP throughout Ext - no sig edema ICD10 Worksheet Patient Problems: Problems Problem Status Onset Breast cancer greater than 0.1 cm and less than or equal to 0.5 cm in greatest dimension Acute Chest pain Acute
[2017-01-09] MEDS: PANTOPRAZOLE SODIUM 40 MG in NS 100 ML IV SCH ×2 (10:01→19:46)
--- NOTE | 2017-01-09 11:04 | HOSPPROG ---
Hospitalist Progress Note Assessment/Plan: 56 yo female with hx of tripple neg metastatic BC followed by Dr. Russo admitted for abd pain, nausea, constipation, and questionable fever. Imaging negative for bowel obstruction. Has been afebrile here #Abd pain/Nause/Constipation Opiate induced -Cont with stool regimen -s/p Relistor x one with resolution of constipation -If becomes symptomatic today, consider another dose -tolerating a regular diet -Will stop IVF today -Will change PPI to IV BID per pt's request #?Fever, none since here -UCx pending #Dehydration: resolved. Stop IVF today #BC with know mets to liver, bone, and lungs -chemotherapy per Onc. Holding for now #Neutropenia: no need for transfusion #Depression #Chronic Pain Syndrome #Weakness and deconditioning #Lovenox for DVT proph as long as platelets are above 70 #Dispo: D/C soon D/W Dr. Solis Subjective: No BM yesterday. No abd pain. Still with low oral intake, improving. No Fever. Objective: Vital Signs Temp Pulse Resp BP Pulse Ox 37.0 C 93 16 98/67 L 93 01/09/17 09:26 01/09/17 09:26 01/09/17 09:26 01/09/17 09:26 01/09/17 09:26 Laboratory Results 01/08/17 05:45 01/09/17 06:30 01/08/17 01/09/17 01/10/17 05:59 05:59 05:59 Intake Total 1662 1600 Output Total 700 1502 Balance 962 98 ICD10 Worksheet Patient Problems: Problems Problem Status Onset Breast cancer greater than 0.1 cm and less than or equal to 0.5 cm in greatest dimension Acute Chest pain Acute
[2017-01-09] MEDS: LORazepam 2 MG/ML INJ IVP PRN (14:06)
[2017-01-09] MEDS: IBUPROFEN 600 MG TAB PO PRN (15:25)
[2017-01-09] MEDS: LORazepam 0.5 MG TAB PO PRN (19:46)
[2017-01-10] MEDS: HYDROmorphONE/DILAUDID 1 MG/ML SYR IVP PRN ×6 (02:27→23:04)
[2017-01-10] MEDS: morphINE SR 30 MG TAB PO SCH ×3 (04:48→23:03)
[2017-01-10 05:12] LABS: ADD DIFF? YES; ADD MORPH? NO; ATYPICAL LYMPHOCYTE FLAG 0 (0-99); FRAGMENT RBC FLAG 0 (0-99); HEMATOCRIT 29.9 % (38.0-47.0); HEMOGLOBIN 9.6 g/dL (12.6-16.3); LEFT SHIFT FLG 60 (0-99); LIPEMIA HEMOLYSIS FLAG 80 (0-99); MEAN CELL HEMOGLOBIN CONCENTR. 32.1 g/dL (32.4-36.7); MEAN CELL VOLUME 99.7 fL (81.5-99.8); MEAN PLATELET VOLUME 12.1 fL (8.7-11.7); PLATELET CLUMPS FLAG 0 (0-99); PLATELET COUNT 72 10^3/uL (150-400)
[2017-01-10 05:21] LABS: ANION GAP 10 mEq/L (8-16); CALCIUM 8.2 mg/dL (8.5-10.4); CARBON DIOXIDE 25 mEq/l (22-31); CHLORIDE 104 mEq/L (97-110); CREATININE 0.5 mg/dL (0.6-1.0); GLOMERULAR FILTRATION RATE > 60; GLUCOSE 96 mg/dL (70-100); POTASSIUM 3.7 mEq/L (3.5-5.2); SODIUM 139 mEq/L (134-144)
[2017-01-10 05:31] LABS: ADD SCAN? NO
[2017-01-10 06:52] LABS: MACROCYTES 1+; MICROCYTES 1+
[2017-01-10 06:53] LABS: PLATELET ESTIMATE DECREASED (ADEQ)
[2017-01-10] MEDS: ESCITALOPRAM OXALATE 10 MG TAB PO SCH (09:24)
[2017-01-10] MEDS: PANTOPRAZOLE SODIUM 40 MG in NS 100 ML IV SCH ×2 (09:24→21:21)
[2017-01-10] MEDS: LORazepam 2 MG/ML INJ IVP PRN ×2 (09:24→23:59)
[2017-01-10] MEDS: LACTULOSE 20 GM/30 ML UDCUP PO SCH ×2 (09:25→17:31)
[2017-01-10] MEDS: SENNOSIDES/DOCUSATE SODIUM TAB PO SCH ×2 (09:25→09:37)
[2017-01-10] MEDS: ENOXAPARIN 40 MG/0.4 ML SYR SC SCH ×2 (09:26→13:52)
--- NOTE | 2017-01-10 10:14 | HOSPPROG ---
Hospitalist Progress Note Assessment/Plan: 56 yo female with hx of tripple neg metastatic BC followed by Dr. Russo admitted for abd pain, nausea, constipation, and questionable fever. Imaging negative for bowel obstruction. She still has nausea and intermittent abd cramping. She has decreased oral intake, both solids and liquids. She has had multiple BMs. Has been afebrile here. UCX is c/w E-Coli but she really does not have any urinary sx's. #Abd pain/Nause/Constipation Opiate induced -Cont with stool regimen, last BM this morning -s/p Relistor x one with resolution of constipation -On a regular diet, but decreased intake -on IV PPI. She requested IV as it was previously PO #?Fever, none since here -UCx c/w E-Coli -No urinary sx's -Will d/w Onc about treating given her Neutropenia. #Dehydration: was improving but appears a bit dehydrated today. Will give additional IVF today. #BC with know mets to liver, bone, and lungs -chemotherapy per Onc. Holding for now #Neutropenia: per Onc. WBC 0.52 today #Depression #Chronic Pain Syndrome #Weakness and deconditioning #FTT #Lovenox for DVT proph as long as platelets are above 70 #Dispo: D/C soon Plan: -restart IVF -Determine if abx appropriate. Will d/w Onc -Nutrition consult -cont bowel regimen Subjective: intermittent nausea and abd cramping. Had a BM this morning. Objective: Vital Signs Temp Pulse Resp BP Pulse Ox 37.1 C 85 18 106/68 94 01/10/17 09:31 01/10/17 09:31 01/10/17 09:31 01/10/17 09:31 01/10/17 09:31 Microbiology 01/08/17 Unknown Urine Culture - Final Urine,Clean Catch Escherichia Coli Esbl Laboratory Results 01/10/17 04:56 01/10/17 04:56 01/09/17 01/10/17 01/11/17 05:59 05:59 05:59 Intake Total 1600 2450 Output Total 1502 1900 Balance 98 550 - Physical Exam Constitutional: no apparent distress, not in pain, chronically ill appearing Eyes: PERRL, EOMI Ears, Nose, Mouth, Throat: dry mucous membranes Cardiovascular: regular rate and rhythym, No JVD Respiratory: no respiratory distress, no rales or rhonchi, clear to auscultation Gastrointestinal: soft, non-tender abdomen, No guarding, No rebound Skin: warm Neurologic: AAOx3 Psychiatric: interacting appropriately, not anxious ICD10 Worksheet Patient Problems: Problems Problem Status Onset ESBL (extended spectrum beta-lactamase) producing bacteria infection Acute ~06/15 Breast cancer greater than 0.1 cm and less than or equal to 0.5 cm in greatest dimension Acute Chest pain Acute
--- NOTE | 2017-01-10 11:30 | SOAPPROG ---
SOAP Progress Note Assessment/Plan: Assessment/Plan: 51 yo w stage IV TNBC admitted w sever constipation/ileus, fatigue, nausea 1. Constipation - s/p relistor w success; large BM 01/07 and another this a.m. KUB without abnormalities electrolytes ok cont aggressive stool regimen and IV fluids BS again diminished today will schedule Reglan today 2. Fatigue/malaise - no fevers here counts dropping but does not need transfusion; will give Zarxio todau urine cultue w E.coli - will treat 3. Breast ca - more recent immunotherapy at [facility] and scans w progression s/p C1D1 Eribulin as next line therapy on 01/04/2017, next dose due this Friday but will delay until following week as she gains strength; dose reduction likely required based on LFTs (repeating these today) Too early to assess response will download recent CT CAP from [facility] that showed progression - waiting for final report 4. Nausea - added aloxi yesterday ativan, phenergan and compazine prn cont IVF and schedule reglan did not respond to olanzapine previously 5. DVT ppx - lovenox as long as plts >70k 6. elevated LFTs - chemo + tumor repeat today 01/09/17 09:05 01/10/17 11:23 Subjective: Looks ill today having increased abdominal pain Objective: Vital Signs Temp Pulse Resp BP Pulse Ox 37.1 C 85 18 106/68 94 01/10/17 09:31 01/10/17 09:31 01/10/17 09:31 01/10/17 09:31 01/10/17 09:31 Microbiology 01/08/17 Unknown Urine Culture - Final Urine,Clean Catch Escherichia Coli Esbl Laboratory Results 01/10/17 04:56 01/10/17 04:56 01/09/17 01/10/17 01/11/17 05:59 05:59 05:59 Intake Total 1600 2450 Output Total 1502 1900 Balance 98 550 Gen - chronically ill appearing, NAD HEENT - anicteric CV - RRR Abd - diminished bowel sounds TTP throughout but mostly epigastrium and RUQ (feel fullness in liver and stomach) Ext - no sig edema ICD10 Worksheet Patient Problems: Problems Problem Status Onset ESBL (extended spectrum beta-lactamase) producing bacteria infection Acute ~06/15 Breast cancer greater than 0.1 cm and less than or equal to 0.5 cm in greatest dimension Acute Chest pain Acute
[2017-01-10 11:37] LABS: ALBUMIN 2.7 g/dL (3.5-5.0); BILIRUBIN,TOTAL 0.6 mg/dL (0.1-1.4); BILIRUBIN-CONJUGATED 0.5 mg/dL (0.0-0.5); BILIRUBIN-UNCONJUGATED 0.1 mg/dL (0.0-1.1); TOTAL PROTEIN 5.1 g/dL (6.3-8.2)
[2017-01-10] MEDS: METOCLOPRAMIDE 10 MG/2 ML VIAL IVP SCH ×3 (13:13→23:59)
[2017-01-10] MEDS: cefOXitin SODIUM 1 GM in D5W 50 ML IV SCH ×3 (13:35→23:59)
[2017-01-10] MEDS: LORazepam 0.5 MG TAB PO PRN (14:18)
[2017-01-10] MEDS: FILGRASTIM-SNDZ 480 MCG/0.8 ML SYR SC SCH (14:19)
[2017-01-10] MEDS: IBUPROFEN 600 MG TAB PO PRN (18:09)
[2017-01-11] MEDS: LACTULOSE 20 GM/30 ML UDCUP PO SCH ×4 (00:02→21:56)
[2017-01-11] MEDS: SENNOSIDES/DOCUSATE SODIUM TAB PO SCH ×3 (00:03→21:57)
[2017-01-11] MEDS: HYDROmorphONE/DILAUDID 1 MG/ML SYR IVP PRN ×5 (04:39→22:58)
[2017-01-11] MEDS: cefOXitin SODIUM 1 GM in D5W 50 ML IV SCH ×3 (05:23→18:11)
[2017-01-11] MEDS: METOCLOPRAMIDE 10 MG/2 ML VIAL IVP SCH ×3 (05:23→18:12)
[2017-01-11] MEDS: morphINE SR 30 MG TAB PO SCH ×3 (05:23→22:34)
[2017-01-11] MEDS: IBUPROFEN 600 MG TAB PO PRN ×2 (05:29→11:57)
[2017-01-11 05:49] LABS: ABSOLUTE NRBC COUNT 0.02 10^3/uL (0-0.01); ATYPICAL LYMPHOCYTE FLAG 0 (0-99); FRAGMENT RBC FLAG 20 (0-99); HEMATOCRIT 30.4 % (38.0-47.0); LEFT SHIFT FLG 70 (0-99); LIPEMIA HEMOLYSIS FLAG 80 (0-99); MEAN CELL HEMOGLOBIN 32.5 pg (27.9-34.1); MEAN CELL HEMOGLOBIN CONCENTR. 32.9 g/dL (32.4-36.7); MEAN CELL VOLUME 98.7 fL (81.5-99.8); MEAN PLATELET VOLUME 11.3 fL (8.7-11.7); PLATELET CLUMPS FLAG 0 (0-99); PLATELET COUNT 70 10^3/uL (150-400); RED BLOOD CELL COUNT 3.08 10^6/uL (4.18-5.33); RED CELL DISTRIBUTION WIDTH 15.3 % (11.5-15.2)
[2017-01-11 06:03] LABS: ALANINE AMINOTRANSFERASE 103 IU/L (9-52); ALBUMIN 2.6 g/dL (3.5-5.0); ALKALINE PHOSPHATASE 433 IU/L (38-126); ANION GAP 10 mEq/L (8-16); ASPARTATE AMINOTRANSFERASE 176 IU/L (14-46); BILIRUBIN,TOTAL 0.8 mg/dL (0.1-1.4); CALCIUM 8.1 mg/dL (8.5-10.4); CARBON DIOXIDE 24 mEq/l (22-31); CHLORIDE 103 mEq/L (97-110); CREATININE 0.4 mg/dL (0.6-1.0); GLOMERULAR FILTRATION RATE > 60; GLUCOSE 86 mg/dL (70-100); POTASSIUM 3.9 mEq/L (3.5-5.2); SODIUM 137 mEq/L (134-144); TOTAL PROTEIN 5.3 g/dL (6.3-8.2)
[2017-01-11 06:18] LABS: NRBC-AUTO% 3.4 % (0.0-0.2)
[2017-01-11 06:19] LABS: ADD MORPH? NO
[2017-01-11 06:23] LABS: % IMMATURE GRANULYOCYTES 1.7 % (0.0-1.1)
[2017-01-11 06:24] LABS: ABSOLUTE IMMATURE GRANULOCYTES 0.01 10^3/uL (0.00-0.10); ADD DIFF? NO; ADD SCAN? NO
[2017-01-11] MEDS: ENOXAPARIN 40 MG/0.4 ML SYR SC SCH (07:58)
[2017-01-11] MEDS: ESCITALOPRAM OXALATE 10 MG TAB PO SCH (07:58)
[2017-01-11] MEDS ORDERED: METHYLNALTREXONE BROMIDE 12 MG/0.6 ML INJ SC ONE (09:31)
[2017-01-11] MEDS ORDERED: oxyCODONE IR 5 MG TAB PO PRN (09:36)
[2017-01-11] MEDS: PANTOPRAZOLE SODIUM 40 MG in NS 100 ML IV SCH ×2 (10:01→21:55)
[2017-01-11] MEDS: LIDOCAINE 5% 1 EA PATCH TD SCH (10:07)
--- NOTE | 2017-01-11 10:08 | HOSPPROG ---
Hospitalist Progress Note Assessment/Plan: DIAGNOSES: -DIFFUSE ABDOMINAL PAIN, FELT LIKELY DUE TO CONSTIPATION FROM NARCOTICS -so far she has only partial relief, still quite a bit of pain, in fact this is significantly worse than her back pain for which she takes the narcotic -ONGOING CANCER PAIN IN HER BACK, REQUIRING DAILY NARCOTIC -her pain control from this is suboptimal at this time and is keeping her awake -NEUTROPENIC FEVER, WITH UTI FROM A RESISTANT E COLI -DEHYDRATION -PANCYTOPENIA INDUCED BY CHEMOTHERAPY -she does not at this time of indication for any transfusions -WIDELY METASTATIC BREAST CANCER, CURRENTLY RECEIVING CHEMOTHERAPY -I reviewed Dr. Braswell notes regarding her treatment plans I reviewed the case in detail today with Dr. Nicholas. At this time it would appear that her abdominal symptoms are probably still largely from constipation. I will give more relative store that she will need in ongoing fashion a better regimen to keep her bowels moving, as well at the same time as better pain control. This I will try to use nonnarcotic treatments as much as possible to improve her pain management at this time and will add scheduled Tylenol as well as a Lidoderm patch for her back. We may be able to use Nucynta or tramadol to as well reduce the amount of constipating effect. MiraLax will probably be very useful for her as well. PLANS: I have added scheduled Tylenol and Lidoderm patches Consider changing her short-acting narcotic to Nucynta or tramadol MiraLax I have given another dose of Relistor or today Encourage ambulation Continue DVT prophylaxis SUBJECTIVE: She continues to have ongoing diffuse abdominal pain and still feels constipated despite bowel movements that she has had here. The pain is not much less than what she was having at home though she does think it has improved to some degree. There is no nausea but she has still very poor appetite. There is still some back pain from her tumor OBJECTIVE Vitals reviewed: Stable without fever Exam: alert oriented, looks fairly uncomfortable skin warm dry color ok; no jaundice No signs of bleeding resps not labored lungs clear BSs heart regular abd soft nondistended nontender, bowel sounds present limbs warm, no edema iv site ok Laboratory data: Remained quite neutropenic with 600 neutrophils Hemoglobin and platelets stable Objective: Vital Signs Temp Pulse Resp BP Pulse Ox 36.9 C 88 18 96/65 L 96 01/11/17 08:58 01/11/17 08:58 01/11/17 08:58 01/11/17 08:58 01/11/17 08:58 Microbiology 01/08/17 Unknown Urine Culture - Final Urine,Clean Catch Escherichia Coli Esbl Laboratory Results 01/11/17 05:30 01/11/17 05:30 01/10/17 01/11/17 01/12/17 06:59 06:59 06:59 Intake Total 2450 2100 Output Total 1900 1050 Balance 550 1050 - Time Spent With Patient Time Spent with Patient: greater than 35 minutes Time Spent with Patient: Greater than 35 minutes spent on this patients care, greater than 50% of time spent counseling, educating, and coordinating care regarding the above mentioned plan. ICD10 Worksheet Patient Problems: Problems Problem Status Onset Breast cancer greater than 0.1 cm and less than or equal to 0.5 cm in greatest dimension Acute Chest pain Acute ESBL (extended spectrum beta-lactamase) producing bacteria infection Acute ~06/15
--- NOTE | 2017-01-11 11:15 | SOAPPROG ---
SOAP Progress Note Assessment/Plan: E&M for breast cancer * Stage IV TNBC: more recent immunotherapy at [facility] and scans showed progression. C1D1 Eribulin on 01/04/2017, next dose was due Friday but held. Probably needs dose reduction * Neutropenia with UTI: E.coli with resistance. On day 2 of Cefoxitin. Continue Zarxio * Chemo-induced pancytopenia: no need for transfusion today. * Constipation - s/p relistor with large BM 01/07 and 01/10. KUB without abnormalities. Discussed with imed. * Fatigue/malaise - no fever Subjective: Doing ok. Can't keep her eyes open but also can't sleep. Eating ok. Objective: Vital Signs Temp Pulse Resp BP Pulse Ox 36.9 C 88 18 96/65 L 96 01/11/17 08:58 01/11/17 08:58 01/11/17 08:58 01/11/17 08:58 01/11/17 08:58 Microbiology 01/08/17 Unknown Urine Culture - Final Urine,Clean Catch Escherichia Coli Esbl Laboratory Results 01/11/17 05:30 01/11/17 05:30 01/10/17 01/11/17 01/12/17 05:59 05:59 05:59 Intake Total 2450 2100 Output Total 1900 1050 Balance 550 1050 Laboratory Tests 01/10/17 01/10/17 01/11/17 04:56 04:56 05:30 WBC 0.52 L* 0.59 L* Hgb 9.6 L 10.0 L Plt Count 72 L 70 L AST 206 H ALT 115 H Alkaline Phosphatase 484 H 01/11/17 05:30 WBC Hgb Plt Count AST 176 H ALT 103 H Alkaline Phosphatase 433 H Physical Exam - Physical Exam General Appearance: no apparent distress Respiratory: lungs clear Cardiac/Chest: regular rate, rhythm Abdomen: soft ICD10 Worksheet Patient Problems: Problems Problem Status Onset Breast cancer greater than 0.1 cm and less than or equal to 0.5 cm in greatest dimension Acute Chest pain Acute ESBL (extended spectrum beta-lactamase) producing bacteria infection Acute ~06/15
[2017-01-11] MEDS ORDERED: ACETAMINOPHEN 500 MG TAB PO SCH (14:00)
[2017-01-11] MEDS: LORazepam 2 MG/ML INJ IVP PRN (14:30)
[2017-01-11] MEDS: FILGRASTIM-SNDZ 480 MCG/0.8 ML SYR SC SCH (14:31)
[2017-01-11] MEDS: LORazepam 0.5 MG TAB PO PRN (22:57)
[2017-01-11] MEDS: PATCH REMOVAL 1 EA PATCH TD SCH (23:33)
[2017-01-12] MEDS: HYDROmorphONE/DILAUDID 1 MG/ML SYR IVP PRN ×4 (00:05→22:54)
[2017-01-12] MEDS: METOCLOPRAMIDE 10 MG/2 ML VIAL IVP SCH ×5 (00:09→22:55)
[2017-01-12] MEDS: cefOXitin SODIUM 1 GM in D5W 50 ML IV SCH ×5 (00:11→22:55)
[2017-01-12] MEDS: LORazepam 2 MG/ML INJ IVP PRN ×2 (03:39→16:43)
[2017-01-12] MEDS: morphINE SR 30 MG TAB PO SCH ×3 (05:44→21:17)
[2017-01-12] MEDS: NS 1,000 ML IV SCH ×3 (05:45→22:58)
[2017-01-12 06:03] LABS: HEMATOCRIT 30.6 % (38.0-47.0); HEMOGLOBIN 9.9 g/dL (12.6-16.3); MEAN CELL HEMOGLOBIN 32.1 pg (27.9-34.1); MEAN CELL HEMOGLOBIN CONCENTR. 32.4 g/dL (32.4-36.7); MEAN CELL VOLUME 99.4 fL (81.5-99.8); RED BLOOD CELL COUNT 3.08 10^6/uL (4.18-5.33); RED CELL DISTRIBUTION WIDTH 15.6 % (11.5-15.2)
[2017-01-12 06:19] LABS: ANION GAP 10 mEq/L (8-16); CARBON DIOXIDE 25 mEq/l (22-31); CHLORIDE 104 mEq/L (97-110); CREATININE 0.4 mg/dL (0.6-1.0); GLOMERULAR FILTRATION RATE > 60; GLUCOSE 85 mg/dL (70-100); POTASSIUM 3.6 mEq/L (3.5-5.2); SODIUM 139 mEq/L (134-144)
[2017-01-12] MEDS: ENOXAPARIN 40 MG/0.4 ML SYR SC SCH (09:40)
[2017-01-12] MEDS: PANTOPRAZOLE SODIUM 40 MG in NS 100 ML IV SCH ×2 (09:40→21:17)
[2017-01-12] MEDS: IBUPROFEN 600 MG TAB PO PRN (09:40)
[2017-01-12] MEDS: LIDOCAINE 5% 1 EA PATCH TD SCH (09:41)
[2017-01-12] MEDS: LACTULOSE 20 GM/30 ML UDCUP PO SCH ×3 (09:41→21:17)
[2017-01-12] MEDS: ESCITALOPRAM OXALATE 10 MG TAB PO SCH (09:41)
[2017-01-12] MEDS: SENNOSIDES/DOCUSATE SODIUM TAB PO SCH (10:08)
--- NOTE | 2017-01-12 11:34 | SOAPPROG ---
SOAP Progress Note Assessment/Plan: E&M for breast cancer * Stage IV TNBC: Recent immunotherapy at [facility] and scans showed progression. C1D1 Eribulin on 01/04/2017, next dose was due Friday but held. Probably needs dose reduction * Neutropenia with UTI: E.coli with resistance. On day 3 of Cefoxitin. Continue Zarxio. WBC better. * Chemo-induced pancytopenia: no need for transfusion today. * Constipation - s/p Relistor with large BM 01/07 and 01/10. KUB without abnormalities. * Fatigue/malaise - no fever Subjective: No new complaints. Maybe feeling a little better. Objective: Vital Signs Temp Pulse Resp BP Pulse Ox 36.7 C 89 16 104/56 L 95 01/12/17 09:10 01/12/17 09:10 01/12/17 09:10 01/12/17 09:10 01/12/17 09:10 Laboratory Results 01/12/17 05:50 01/12/17 05:50 01/11/17 01/12/17 01/13/17 05:59 05:59 05:59 Intake Total 2100 2063 Output Total 1050 600 Balance 1050 1463 Physical Exam - Physical Exam General Appearance: no apparent distress Respiratory: crackles (bases) Cardiac/Chest: tachycardia Abdomen: soft ICD10 Worksheet Patient Problems: Problems Problem Status Onset Breast cancer greater than 0.1 cm and less than or equal to 0.5 cm in greatest dimension Acute Chest pain Acute ESBL (extended spectrum beta-lactamase) producing bacteria infection Acute ~06/15
--- NOTE | 2017-01-12 13:01 | HOSPPROG ---
Hospitalist Progress Note Assessment/Plan: DIAGNOSES: -DIFFUSE ABDOMINAL PAIN, FELT LIKELY DUE TO CONSTIPATION FROM NARCOTICS -continues slow improvement -ONGOING CANCER PAIN IN HER BACK, REQUIRING DAILY NARCOTIC -her pain control from this is suboptimal at this time but better than yesterday -NEUTROPENIC FEVER, WITH UTI FROM A RESISTANT E COLI -no fever for > 2 days -DEHYDRATION -PANCYTOPENIA INDUCED BY CHEMOTHERAPY -she does not at this time have indication for any transfusions -WIDELY METASTATIC BREAST CANCER, CURRENTLY RECEIVING CHEMOTHERAPY will review further treatment options w Dr Russo tomorrow I reviewed the case in detail today with Dr. Nicholas. Overall she is showing slow signs of improvement symptomatically but still fairly debilitated by pain, fatigue, poor appetite. She is not really getting out of bed. Yesterday she declined to use Lidoderm patch for her back pain but after talking with her further today I think she will accept that treatment at this time. PLANS: continue Tylenol and will see if she will use Lidoderm patches Consider changing her short-acting narcotic to Nucynta or tramadol MiraLax relistor as needed Encourage ambulation Continue DVT prophylaxis SUBJECTIVE: today slightly less abdominal discomfort and has continued to move her bowels okay. She still has however diffuse abdominal pain. She has same back pain perhaps slightly better. She was able to rest a little bit better. No chills or sweats no nausea but no appetite OBJECTIVE Vitals reviewed: Stable without fever Exam: alert oriented, looks fairly uncomfortable skin warm dry color ok; no jaundice No signs of bleeding resps not labored lungs clear BSs heart regular abd soft nondistended nontender, bowel sounds present limbs warm, no edema iv site ok Laboratory data: White count slightly better total at 900 white cells today Objective: Vital Signs Temp Pulse Resp BP Pulse Ox 36.7 C 89 16 104/56 L 95 01/12/17 09:10 01/12/17 09:10 01/12/17 09:10 01/12/17 09:10 01/12/17 09:10 Laboratory Results 01/12/17 05:50 01/12/17 05:50 01/11/17 01/12/17 01/13/17 06:59 06:59 06:59 Intake Total 2100 2063 Output Total 1050 600 Balance 1050 1463 - Time Spent With Patient Time Spent with Patient: greater than 35 minutes Time Spent with Patient: Greater than 35 minutes spent on this patients care, greater than 50% of time spent counseling, educating, and coordinating care regarding the above mentioned plan. ICD10 Worksheet Patient Problems: Problems Problem Status Onset Breast cancer greater than 0.1 cm and less than or equal to 0.5 cm in greatest dimension Acute Chest pain Acute ESBL (extended spectrum beta-lactamase) producing bacteria infection Acute ~06/15
[2017-01-12] MEDS ORDERED: POLYETHYLENE GLYCOL 3350 17 GM PKT PO ONE (13:03)
[2017-01-12] MEDS: FILGRASTIM-SNDZ 480 MCG/0.8 ML SYR SC SCH (14:18)
[2017-01-12] MEDS: LORazepam 0.5 MG TAB PO PRN (19:16)
[2017-01-13] MEDS: SENNOSIDES/DOCUSATE SODIUM TAB PO SCH ×2 (01:40→10:32)
[2017-01-13] MEDS: PATCH REMOVAL 1 EA PATCH TD SCH (01:40)
[2017-01-13] MEDS: morphINE SR 30 MG TAB PO SCH ×2 (06:10→20:27)
[2017-01-13] MEDS: METOCLOPRAMIDE 10 MG/2 ML VIAL IVP SCH ×3 (06:10→18:16)
[2017-01-13] MEDS: cefOXitin SODIUM 1 GM in D5W 50 ML IV SCH ×3 (06:18→18:16)
[2017-01-13 07:10] LABS: ABSOLUTE NRBC COUNT 0.21 10^3/uL (0-0.01); ADD DIFF? YES; ATYPICAL LYMPHOCYTE FLAG 0 (0-99); FRAGMENT RBC FLAG 20 (0-99); HEMATOCRIT 30.7 % (38.0-47.0); HEMOGLOBIN 9.8 g/dL (12.6-16.3); LIPEMIA HEMOLYSIS FLAG 80 (0-99); MEAN CELL HEMOGLOBIN 32.2 pg (27.9-34.1); MEAN CELL HEMOGLOBIN CONCENTR. 31.9 g/dL (32.4-36.7); MEAN PLATELET VOLUME 12.7 fL (8.7-11.7); PLATELET CLUMPS FLAG 0 (0-99); PLATELET COUNT 72 10^3/uL (150-400); RED BLOOD CELL COUNT 3.04 10^6/uL (4.18-5.33)
[2017-01-13 07:13] LABS: ADD MORPH? NO; ADD SCAN? NO; LEFT SHIFT FLG 300 (0-99); NRBC-AUTO% 5.7 % (0.0-0.2)
[2017-01-13 07:29] LABS: ALBUMIN 2.3 g/dL (3.5-5.0); BILIRUBIN,TOTAL 0.7 mg/dL (0.1-1.4); BILIRUBIN-CONJUGATED 0.5 mg/dL (0.0-0.5); BILIRUBIN-UNCONJUGATED 0.2 mg/dL (0.0-1.1); TOTAL PROTEIN 4.6 g/dL (6.3-8.2)
[2017-01-13 08:44] LABS: ELLIPTOCYTES 1+; MACROCYTES 1+; PLATELET ESTIMATE DECREASED (ADEQ); POLYCHROMASIA 1+
[2017-01-13] MEDS: PANTOPRAZOLE SODIUM 40 MG in NS 100 ML IV SCH ×2 (09:58→20:27)
[2017-01-13] MEDS: LACTULOSE 20 GM/30 ML UDCUP PO SCH ×3 (09:58→22:40)
[2017-01-13] MEDS: ENOXAPARIN 40 MG/0.4 ML SYR SC SCH (10:30)
[2017-01-13] MEDS: ESCITALOPRAM OXALATE 10 MG TAB PO SCH (10:31)
[2017-01-13] MEDS: POLYETHYLENE GLYCOL 3350 17 GM PKT PO SCH (10:32)
[2017-01-13] MEDS: LIDOCAINE 5% 1 EA PATCH TD SCH (10:32)
--- NOTE | 2017-01-13 10:57 | SOAPPROG ---
SOAP Progress Note Assessment/Plan: Assessment: E&M for breast cancer * Stage IV TNBC: Recent immunotherapy at [facility] and scans showed progression. C1D1 Eribulin on 01/04/2017, next dose was due Friday but held. Probably needs dose reduction. LFTS are improving possibly related to chemo effect * Neutropenia with UTI: E.coli with resistance. On day 4 of Cefoxitin. Continue Zarxio. WBC better. * Chemo-induced pancytopenia: no need for transfusion today. * Constipation - s/p Relistor with large BM 01/07 and 01/10. KUB without abnormalities. Continuing on lactulose * Fatigue/malaise - no fever Subjective: Drowsy. pain under good control Plan:Will decrease MS Contin, possibly more Eribulin later this week 01/13/17 10:54 Objective: Vital Signs Temp Pulse Resp BP Pulse Ox 98 F 99 16 110/72 91 L 01/13/17 09:40 01/13/17 09:40 01/13/17 09:40 01/13/17 09:40 01/13/17 06:01 Laboratory Results 01/13/17 06:21 01/12/17 05:50 01/12/17 01/13/17 01/14/17 05:59 05:59 05:59 Intake Total 2063 1850 Output Total 600 850 Balance 1463 1000 Physical Exam - Physical Exam General Appearance: alert (Sleepy) Respiratory: lungs clear, normal breath sounds Cardiac/Chest: regular rate, rhythm Abdomen: hepatomegaly ICD10 Worksheet Patient Problems: Problems Problem Status Onset Breast cancer greater than 0.1 cm and less than or equal to 0.5 cm in greatest dimension Acute Chest pain Acute ESBL (extended spectrum beta-lactamase) producing bacteria infection Acute ~06/15
[2017-01-13] MEDS: LORazepam 2 MG/ML INJ IVP PRN (11:25)
[2017-01-13] MEDS: FILGRASTIM-SNDZ 480 MCG/0.8 ML SYR SC SCH (13:59)
--- NOTE | 2017-01-13 15:22 | HOSPPROG ---
Hospitalist Progress Note Assessment/Plan: DIAGNOSES: -DIFFUSE ABDOMINAL PAIN, FELT LIKELY DUE TO CONSTIPATION FROM NARCOTICS -continues slow improvement -ONGOING CANCER PAIN IN HER BACK, REQUIRING DAILY NARCOTIC -her pain control is notably better at this time -NEUTROPENIC FEVER, WITH UTI FROM A RESISTANT E COLI -no fever for > 2 days -DEHYDRATION -PANCYTOPENIA INDUCED BY CHEMOTHERAPY -she does not at this time have indication for any transfusions - I SUSPECT SHE MAY BE SOMEWHAT DEPRESSED AT THIS POINT, IS ON 5 MG DAILY LEXAPRO - will increase Lexapro to 10 mg -WIDELY METASTATIC BREAST CANCER, CURRENTLY RECEIVING CHEMOTHERAPY will review further treatment options w Dr Russo tomorrow Hopefully she will continue to progress. I encouraged her today to attempt more physical activity and, if able, to eat more. She should be able to DC home soon but needs to be thriving better for that. PLANS: dr Russo has made some adjustments in her pain medicines will increase lexapro MiraLax relistor as needed Encourage ambulation and po intake Continue DVT prophylaxis SUBJECTIVE: Again states she feels slightly better overall today with some decrease in her abdominal and back pain. However she remains with very poor appetite, staying in room with shades drawn, not really engaging much at all and physical activity. She complains of excessive fatigue but says she is sleeping a little bit better. I reviewed with her and Dr. Russo who knows her well. She apparently is normally a very vigorous and happy outdoors person, fly fishing riding horses and other activities on a very frequent basis. Here she went out yesterday to our patio for the 1st time and said she did not really open her eyes during that 20 minutes, states that she sat in the wheelchair with her head hung low. OBJECTIVE Vitals reviewed: Stable without fever Exam: alert oriented, looks More relaxed and less uncomfortable today skin warm dry color ok; no jaundice No signs of bleeding resps not labored lungs clear BSs heart regular abd soft nondistended nontender, bowel sounds present limbs warm, no edema iv site ok Laboratory data: White count slightly better total at 3000 white cells today Objective: Vital Signs Temp Pulse Resp BP Pulse Ox 36.6 C 99 16 110/72 91 L 01/13/17 09:40 01/13/17 09:40 01/13/17 09:40 01/13/17 09:40 01/13/17 06:01 Laboratory Results 07/17/17 06:21 01/12/17 05:50 01/12/17 01/13/17 01/14/17 06:59 06:59 06:59 Intake Total 6457 6599 Output Total 600 850 Balance 1463 1000 ICD10 Worksheet Patient Problems: Problems Problem Status Onset Breast cancer greater than 0.1 cm and less than or equal to 0.5 cm in greatest dimension Acute Chest pain Acute ESBL (extended spectrum beta-lactamase) producing bacteria infection Acute ~06/15
[2017-01-13] MEDS: HYDROmorphONE/DILAUDID 1 MG/ML SYR IVP PRN ×2 (15:46→22:36)
[2017-01-13] MEDS: LORazepam 0.5 MG TAB PO PRN ×2 (15:47→21:22)
[2017-01-13] MEDS: IBUPROFEN 600 MG TAB PO PRN (17:32)
[2017-01-13] MEDS ORDERED: MELATONIN 3 MG TAB PO SCH (21:00)
[2017-01-13] MEDS: NS 1,000 ML IV SCH (21:22)
[2017-01-14] MEDS: METOCLOPRAMIDE 10 MG/2 ML VIAL IVP SCH ×3 (01:22→11:41)
[2017-01-14] MEDS: cefOXitin SODIUM 1 GM in D5W 50 ML IV SCH ×3 (01:22→11:41)
[2017-01-14] MEDS: morphINE SR 30 MG TAB PO SCH ×3 (01:46→11:41)
[2017-01-14] MEDS ORDERED: CALCIUM CARBONATE 500 MG CHEWABLE TAB PO PRN (02:06)
[2017-01-14] MEDS: NS 1,000 ML IV SCH ×2 (03:47→10:12)
[2017-01-14 04:04] LABS: ABSOLUTE NRBC COUNT 0.21 10^3/uL (0-0.01); ADD DIFF? YES; ADD MORPH? YES; ATYPICAL LYMPHOCYTE FLAG 0 (0-99); FRAGMENT RBC FLAG 20 (0-99); HEMOGLOBIN 10.2 g/dL (12.6-16.3); LIPEMIA HEMOLYSIS FLAG 80 (0-99); MEAN CELL HEMOGLOBIN 31.8 pg (27.9-34.1); MEAN CELL HEMOGLOBIN CONCENTR. 31.9 g/dL (32.4-36.7); MEAN CELL VOLUME 99.7 fL (81.5-99.8); MEAN PLATELET VOLUME 9.8 fL (8.7-11.7); PLATELET CLUMPS FLAG 0 (0-99); PLATELET COUNT 55 10^3/uL (150-400); RED BLOOD CELL COUNT 3.21 10^6/uL (4.18-5.33); RED CELL DISTRIBUTION WIDTH 17.5 % (11.5-15.2)
[2017-01-14 04:08] LABS: ADD SCAN? NO; LEFT SHIFT FLG 300 (0-99); NRBC-AUTO% 1.7 % (0.0-0.2)
[2017-01-14 04:39] LABS: ACANTHOCYTES 1+; ELLIPTOCYTES 1+; MACROCYTES 1+; MICROCYTES 1+; PLATELET ESTIMATE DECREASED (ADEQ); TOXIC GRANULATION PRESENT; TOXIC VACUOLIZATION PRESENT
[2017-01-14] MEDS ORDERED: ESCITALOPRAM OXALATE 10 MG TAB PO SCH ×2 (09:00→09:30)
[2017-01-14 09:19] VITALS: BP 107/73; PULSE 89; RESP 16; TEMP 97.9; O2SAT 93
[2017-01-14] MEDS: PANTOPRAZOLE SODIUM 40 MG in NS 100 ML IV SCH (09:23)
[2017-01-14] MEDS: LACTULOSE 20 GM/30 ML UDCUP PO SCH ×2 (09:24→12:39)
[2017-01-14] MEDS: POLYETHYLENE GLYCOL 3350 17 GM PKT PO SCH (09:25)
--- NOTE | 2017-01-14 10:23 | HOSPPROG ---
Hospitalist Progress Note Assessment/Plan: DIAGNOSES: -DIFFUSE ABDOMINAL PAIN, FELT LIKELY DUE TO CONSTIPATION FROM NARCOTICS -continues slow improvement -ONGOING CANCER PAIN IN HER BACK, REQUIRING DAILY NARCOTIC -her pain control is notably better at this time -NEUTROPENIC FEVER, WITH UTI FROM A RESISTANT E COLI -no fever for several days, and no longer neutropenic -DEHYDRATION -resolved after IV hydration -PANCYTOPENIA INDUCED BY CHEMOTHERAPY -she does not at this time have indication for any transfusions; white cell count has recovered nicely - I BELIEVE SHE IS DEPRESSED AT THIS POINT, IS ON 5 MG DAILY LEXAPRO - she is chronically on Lexapro at 5 mg daily, I talked to her about increasing the dose however she will not agree with increasing the dose interestingly because she had a lot of cardiac ectopy when she had stopped taking her 5 mg Lexapro once previously -WIDELY METASTATIC BREAST CANCER, CURRENTLY RECEIVING CHEMOTHERAPY Again have encouraged increased p.o. intake and physical activity and discuss some strategies for had a return accomplish that. Will discuss further with Dr. Russo. PLANS: MiraLax relistor as needed Encourage ambulation and po intake Continue DVT prophylaxis I believe there is little more we can really do for her here at present and she may actually do better at home, will review w Dr Russo SUBJECTIVE: Today is was the case for the last 2 days she tells me that she has less pain and feels like a better appetite, however she continues to eat almost nothing and to do extremely minimal activity. She does not have nausea. She does mention some early satiety. OBJECTIVE Vitals reviewed: Stable without fever Exam: alert oriented, looks quite fatigued, low affect skin warm dry color ok; no jaundice No signs of bleeding resps not labored lungs clear BSs heart regular abd soft nondistended nontender, bowel sounds present limbs warm, no edema iv site ok Laboratory data: White count over 12,000 today Objective: Vital Signs Temp Pulse Resp BP Pulse Ox 36.6 C 89 16 107/73 93 01/14/17 09:18 01/14/17 09:18 01/14/17 09:18 01/14/17 09:18 01/14/17 09:18 Laboratory Results 01/14/17 04:00 01/12/17 05:50 01/13/17 01/14/17 01/15/17 06:59 06:59 06:59 Intake Total 1850 420 Output Total 850 400 Balance 1000 20 ICD10 Worksheet Patient Problems: Problems Problem Status Onset Breast cancer greater than 0.1 cm and less than or equal to 0.5 cm in greatest dimension Acute Chest pain Acute ESBL (extended spectrum beta-lactamase) producing bacteria infection Acute ~06/15
--- NOTE | 2017-01-14 11:07 | SOAPPROG ---
SOAP Progress Note Assessment/Plan: Assessment: E&M for breast cancer * Stage IV TNBC: Recent immunotherapy at [facility] and scans showed progression. C1D1 Eribulin on 01/04/2017, next dose was due Friday but held. Probably needs dose reduction. LFTS are improving possibly related to chemo effect * Neutropenia with UTI: E.coli with resistance. On day 5 of Cefoxitin. Stop Zarxio. WBC better. * Chemo-induced pancytopenia: no need for transfusion today. * Constipation - s/p Relistor with large BM 01/07 and 01/10. KUB without abnormalities. Continuing on lactulose * Fatigue/malaise - no fever Subjective: Drowsy. pain under good control Plan:home today, follow up [facility] friday, possibly eribulin at that time 01/13/17 10:54 01/14/17 11:04 Objective: Vital Signs Temp Pulse Resp BP Pulse Ox 97.9 F 89 16 107/73 93 01/14/17 09:18 01/14/17 09:18 01/14/17 09:18 01/14/17 09:18 01/14/17 09:18 Laboratory Results 01/14/17 04:00 01/12/17 05:50 01/13/17 01/14/17 01/15/17 05:59 05:59 05:59 Intake Total 1850 420 Output Total 850 400 Balance 1000 20 ICD10 Worksheet Patient Problems: Problems Problem Status Onset Breast cancer greater than 0.1 cm and less than or equal to 0.5 cm in greatest dimension Acute Chest pain Acute ESBL (extended spectrum beta-lactamase) producing bacteria infection Acute ~06/15
[2017-01-14] MEDS: IBUPROFEN 600 MG TAB PO PRN (12:37)
[2017-01-14] MEDS: LORazepam 0.5 MG TAB PO PRN (12:38)
--- NOTE | 2017-01-14 17:05 | PDIAF ---
- Diagnosis Diagnosis: breast cancer, back pain, uti, anorexia due to chemotx Code Status: Full Code - Medication Management Discharge Medications: Medications to Continue on Transfer HYDROcodone/APAP 10/325 [[place] 10/325 (*)] 0.5 - 1 tab PO Q6HRS PRN 09/23/16 [ Last Taken 11/04/16 06:00 0.5 tab] LORazepam [Ativan (*)] 0.5 - 1 mg PO HS PRN 09/23/16 [Last Taken 11/03/16 22:00] Ibuprofen [Motrin (*)] 400 mg PO DAILY PRN 11/04/16 [Last Taken Unknown] Escitalopram Oxalate [Lexapro] 5 mg PO DAILY #0 11/28/16 [Last Taken 01/07/17] Morphine Sulfate [Ms Contin] 30 mg PO Q8 12/07/16 [Last Taken 01/07/17 14:15 1 tab] Dexamethasone [Decadron 4 MG (*)] 8 mg PO AD PRN 01/07/17 [Last Taken Unknown] Doxycycline Hyclate 100 mg PO BID #10 tablet 01/14/17 [Last Taken Unknown] Pantoprazole Sodium [Protonix 40mg (*)] 40 mg PO BID #60 tab 01/14/17 [Last Taken Unknown] Polyethylene Glycol 3350 [Miralax 17 gm (*)] 17 gm PO DAILY #30 pkt 01/14/17 [ Last Taken Unknown] Discharge Medications: Refer to the Discharge Home Medication list for PRN reason. - Orders Services needed: Home Care, Registered Nurse Home Care Face to Face: I certify that this patient was under my care and that I had the required [id number] encounter meeting the encounter requirements on the discharge day. My findings support the fact that the patient is homebound as defined in CMS Chapter 7 Medicare Benefits Manual 30.1.1, The condition of the patient is such that there exists a normal inability to leave home and consequently, leaving home would require a considerable and taxing effort. Diet Recommendation: no restrictions on diet Diet Texture: Regular Texture Diet - Follow Up Care Current Providers and Referrals: Patient,NotPresent [Primary Care Provider] -
--- NOTE | 2017-01-14 17:07 | PDDCSUM ---
Discharge Summary Discharge Summary: DISCHARGE DIAGNOSES: -DIFFUSE ABDOMINAL PAIN, FELT LIKELY DUE TO CONSTIPATION FROM NARCOTICS -ONGOING CANCER PAIN IN HER BACK, REQUIRING DAILY NARCOTIC -NEUTROPENIC FEVER, WITH UTI FROM A RESISTANT E COLI -DEHYDRATION -PANCYTOPENIA INDUCED BY CHEMOTHERAPY - I BELIEVE SHE IS DEPRESSED AT THIS POINT, IS ON 5 MG DAILY LEXAPRO -WIDELY METASTATIC BREAST CANCER, CURRENTLY RECEIVING CHEMOTHERAPY CONSULTANTS: Dr. Gay Vevay oncology [facility] COURSE SUMMARY: This patient with repair current breast carcinoma metastatic came in with abdominal pain, back pain, and neutropenic fever. She had recently had chemotherapy. She was found to have E coli with an ESBL E coli. It was responsive to cefoxitin and she was treated in the hospital with that. Her response to the antibiotic was excellent with resolution of fevers and other urinary symptoms. She has had good response with recovery of her white blood cell count to normal. The patient did have significant abdominal pain and bloating and was quite constipated likely due to her ongoing pain medicines for cancer pain. She was treated with relistor, lactulose and MiraLax here and had excellent response. She will continue MiraLax at home. At this time she is clinically stable. She will be discharged home will have home nursing to check in on her. She has ongoing antibiotics for her infection. The patient will see Dr. Russo in clinic in 2 days where they will discuss further options for chemotherapy treatment. The patient has had numerous therapies so far and they are waiting on possible plans for further directed chemotherapy. PENDING TEST RESULTS: None MEDICATION CHANGES: Doxycycline 100 mg twice daily for 4 days MiraLax daily FOLLOW-UP PLAN: With Dr. Russo in clinic in 2 days Further chemotherapy will be considered at that time Greater than 35 minutes bedside and care coordination time today
[2017-01-14] MEDS ORDERED: PANTOPRAZOLE SODIUM 40 MG TAB PO SCH (21:00)
== END 2017-01-14 16:00 | disposition home health service (06) | DRG 391 ==
LOC: F1N 13:19
PROVIDERS: ADMIT Internal Medicine; ATTEND Internal Medicine
DX: K59.03 Drug induced constipation (principal); T40.605A Adverse effect of unspecified narcotics, initial encounter; E86.0 Dehydration; C78.01 Secondary malignant neoplasm of right lung; C78.02 Secondary malignant neoplasm of left lung; C79.51 Secondary malignant neoplasm of bone; C78.7 Secondary malignant neoplasm of liver and intrahepatic bile duct; Z85.3 Personal history of malignant neoplasm of breast; Z90.13 Acquired absence of bilateral breasts and nipples; N39.0 Urinary tract infection, site not specified; B96.29 Other Escherichia coli [E. coli] as the cause of diseases classified elsewhere; Z16.12 Extended spectrum beta lactamase (ESBL) resistance; D61.810 Antineoplastic chemotherapy induced pancytopenia; G89.3 Neoplasm related pain (acute) (chronic); F11.20 Opioid dependence, uncomplicated; D64.9 Anemia, unspecified; F32.9 Major depressive disorder, single episode, unspecified; F41.9 Anxiety disorder, unspecified
CPT/HCPCS: J0697; J1170; J1642; J1650; J2060; J2212; J2469; J2550; J2765; Q5101-ZA